=== PATIENT | female | born 1955 | race Caucasian/White ===

== ENCOUNTER 2017-09-11 06:29 | Observation (INO) | payer OTHER ==
[2017-09-11] MEDS ORDERED: PROCHLORPERAZINE INJ 5 MG/ML 2 ML VIAL IV ONE (06:44)
[2017-09-11] MEDS ORDERED: Pantoprazole IV* 40 MG IV ONE (06:49)
--- NOTE | 2017-09-11 06:52 | ED ---
GI/ HPI - HPI Summary HPI Summary: Diabetic, dialysis patient presents with nausea, vomiting, diarrhea since 3 AM this morning. Reports she went to a picnic yesterday and feels she may have food poisoning. Another family member that attended this picnic also has the same symptoms. She denies fever, chills, neck stiffness, chest pain, shortness of breath, félix abdominal pain. She does have a PEDRAZA after these actions. She has not tried anything prior to arrival. She denies nausea at this point in time however reports it's been coming in waves. Has had syncope prior to arrival. She is still urinating however it seems to be less than usual. She is due for dialysis today and her last treatment was Monday. Other medical history of note: Patient is status post splenectomy due to hereditary spherocytosis and she has a cardiac murmur. Follows with Dr. Izaguirre to the dialysis center. She also has a new cough which she's developed since vomiting. Although she drinks ETOH occasionally, she denies drinking yesterday. - History of Current Complaint Chief Complaint: EDSyncope Time Seen by Provider: 09/11/17 06:31 Stated Complaint: SYNCOPE Hx Obtained From: Patient Pain Intensity: 0 - Allergy/Home Medications Allergies/Adverse Reactions: Allergies Allergy/AdvReac Type Severity Reaction Status Date / Time codeine Allergy Constipatio Verified 09/11/17 08:05 n losartan Allergy Coughing Verified 09/11/17 08:05 Home Medications: Home Medications Carvedilol TAB* [Coreg TAB*] 25 mg PO BID WITH MEALS 09/11/17 [History Confirmed 09/11/17] Cinacalcet TAB* [Sensipar TAB*] 30 mg PO DAILY 09/11/17 [History Confirmed 09/11] Gabapentin CAP(*) [Neurontin 100 mg CAP(*)] 200 mg PO BID 09/11/17 [History Confirmed 09/11/17] Gabapentin CAP(*) [Neurontin 100 mg CAP(*)] 300 mg PO QPM 09/11/17 [History Confirmed 09/11/17] Insulin GLARGINE(*) [Lantus(*)] 20 units SUBCUT QPM 09/11/17 [History Confirmed 09/11/17] Inulin/Chromium Picolinate [Fiber Gummies] 2 tab.chew PO DAILY 09/11/17 [ History Confirmed 09/11/17] Lisinopril TAB* [Prinivil TAB*] 20 mg PO DAILY 09/11/17 [History Confirmed 09/11] Sevelamer TAB* [Renvela TAB*] 1,600 mg PO .WITH SNACKS 09/11/17 [History Confirmed 09/11/17] Sodium Bicarbonate (ANTACID)* 1,300 mg PO TID 09/11/17 [History Confirmed ] Vit B Complx C/Folic Acid/Zinc [Dialyvite 800/Zinc] 1 tab PO DAILY 09/11/17 [ History Confirmed 09/11/17] PMH/Surg Hx/FS Hx/Imm Hx Previously Healthy: Yes Endocrine/Hematology History: Reports: Hx Diabetes - type 2 - uses insulin, Other Endocrine/Hematological Disorders - hereditary spherocytosis - s/p splenectomy Denies: Hx Anticoagulant Therapy, Hx Thyroid Disease, Hx Unexplained Bleeding Cardiovascular History: Reports: Hx Hypercholesterolemia, Hx Hypertension, Other Cardiovascular Problems/Disorders - cardiac murmur - takes diuretic Denies: Hx Congestive Heart Failure, Hx Myocardial Infarction, Hx Pacemaker/ ICD Respiratory History: Denies: Hx Asthma, Hx Chronic Obstructive Pulmonary Disease (COPD), Hx Pneumonia GI History: Reports: Hx Gall Bladder Disease - s/p cholycystectomy History: Reports: Hx Chronic Renal Failure - end stage Comment Only: Hx Dialysis - soon fistula placed Musculoskeletal History: Reports: Hx Back Problems Sensory History: Reports: Hx Contacts or Glasses Denies: Hx Hearing Aid Opthamlomology History: Reports: Hx Contacts or Glasses Neurological History: Reports: Hx Nerve Disease - mononeuritis multiplex Psychiatric History: Denies: Hx Panic Disorder - Surgical History Surgery Procedure, Year, and Place: cholEcystectomy, splenectomy - Immunization History Immunizations Up to Date: Yes Infectious Disease History: No Infectious Disease History: Denies: Traveled Outside the [place] in Last 30 Days - Social History Lives: With Family - female partner Alcohol Use: Rare Hx Substance Use: No Substance Use Type: Reports: None Hx Tobacco Use: No Smoking Status (MU): Never Smoked Tobacco Review of Systems Positive: Fatigue. Negative: Fever, Chills Eyes: Negative ENT: Negative Cardiovascular: Negative Respiratory: Negative Positive: Vomiting, Diarrhea, Nausea Genitourinary: Negative - still urinating but less Musculoskeletal: Negative Skin: Negative Positive: Weakness - generalized Psychological: Normal All Other Systems Reviewed And Are Negative: Yes Physical Exam Triage Information Reviewed: Yes Vital Signs On Initial Exam: Initial Vitals Temp Pulse Resp BP Pulse Ox 96.4 F 73 18 179/72 90 09/11/17 06:30 09/11/17 06:30 09/11/17 06:30 09/11/17 06:30 09/11/17 06:30 Vital Signs Reviewed: Yes Appearance: Positive: No Pain Distress, Ill-Appearing, Obese Skin: Positive: Warm, Dry - generalized pallor/mild jaundice Head/Face: Positive: Normal Head/Face Inspection Eyes: Positive: Normal, EOMI, SAUL, Conjunctiva Clear ENT: Positive: Normal ENT inspection, Hearing grossly normal, Pharynx normal - mucosa moist Neck: Positive: Supple Respiratory/Lung Sounds: Positive: Clear to Auscultation, Breath Sounds Present , Other - wet cough at times - she is able to clear w/o difficulty Cardiovascular: Positive: Murmur, Other - Rt arm fistula in place, S1, S2 Abdomen Description: Positive: Soft, Other: - mild TTP over epigastric region and both sides - no lower ab pain - no rebounding Musculoskeletal: Positive: Normal, Strength/ROM Intact Neurological: Positive: Normal, Alert, Oriented to Person Place, Time, CN Intact II-III Psychiatric: Positive: Normal Diagnostics - Vital Signs Vital Signs Temp Pulse Resp BP Pulse Ox 09/11/17 06:35 73 26 93 09/11/17 06:33 72 15 179/72 93 09/11/17 06:30 96.4 F 73 18 179/72 90 - Laboratory Result Diagrams: 09/11/17 06:47 09/11/17 06:47 Lab Statement: Any lab studies that have been ordered have been reviewed, and results considered in the medical decision making process. Re-Evaluation - Re-Evaluation First Eval Change: Improved - nausea improved GIGU Course/Dx - Course Course Of Treatment: Patient presents to the ED with acute onset nausea vomiting diarrhea at 3 AM this morning. She suspects this could be food poisoning as she and her sister hvae similar sx since attending a picnic yesterday. Abnormal labs to include: WBC 23 w/ neut 19.3. K+ 5.1 BUN 97 Creat 8.80 glucose 137 phosphorous 5.6 chloride 92 lipase 579. H&H are stable at 12.5 and 38 respectively. Blood type is A+. Given her abnormal labs, comorbidities and that she require dialysis today, she'll be admitted to the telemetry unit - Dr. Izaguirre aware. Fluids were held as pt's vitals are stable and she has a diuretic listed on her med list. ECG NSR w/o peaked or flat T waves and no ST changes. Patient's chest x-ray is without acute findings and her brain CT although without acute findings does have a new finding of calcification of Rt posterior frontal meningioma. Discussed with Dr. Ang who will share findings with the patient as well as admit. Pt in stable condition at time of admission. - Diagnoses Provider Diagnoses: Vomiting and diarrhea, Syncope, Diabetes, ESRD (end stage renal disease) Discharge - Sign-Out/Discharge Documenting (check all that apply): Discharge/Admit/Transfer - Discharge Plan Condition: Stable Disposition: ADMITTED TO [facility] - Billing Disposition and Condition Condition: STABLE Disposition: Admitted to [facility]
[2017-09-11 06:56] LABS: Hematocrit 38 % (35-47); Hemoglobin 12.5 g/dl (12.0-16.0); Mean Corpuscular HGB Conc 33 g/dl (31-36); Mean Corpuscular Hemoglobin 31 pg (27-31); Mean Corpuscular Volume 95 fL (80-97); Mean Platelet Volume 9.5 um3 (7.4-10.4); Platelet Count 311 10^3/ul (150-450); Red Blood Count 4.01 10^6/ul (4.0-5.4); Red Cell Distribution Width 16 % (10.5-15); White Blood Count 23.6 10^3/ul (3.5-10.8)
[2017-09-11 07:10] LABS: INR 0.91 (0.77-1.02)
[2017-09-11 07:23] LABS: EGFR Non-African American 4.5 (>60)
--- NOTE | 2017-09-11 08:15 | RAD ---
HISTORY: Syncope w/ fall and now PEDRAZA, photophobia, vomiting COMPARISONS: MRI of the brain dated July 06, 2015 TECHNIQUE: Multiple contiguous axial CT scans were obtained of the head without intravenous contrast. FINDINGS: HEMORRHAGE/INFARCT: There is no hemorrhage or acute infarct. MASSES/SHIFT: There is no mass or shift. EXTRA-AXIAL SPACES: There is a small calcific extra-axial lesion along the inner table of the right frontal skull measuring up to 0.3 cm in depth. SULCI AND VENTRICLES: The sulci and ventricles are normal in size and position for the patient's stated age. CEREBRUM: There are no focal parenchymal abnormalities. BRAINSTEM: There are no focal parenchymal abnormalities. CEREBELLUM: There are no focal parenchymal abnormalities. VESSELS: There is calcification of the cavernous segments of the internal carotid arteries bilaterally. PARANASAL SINUSES: The paranasal sinuses are clear. ORBITS: The orbits are unremarkable. BONES AND SOFT TISSUE: No bone or soft tissue abnormalities are noted. OTHER: None IMPRESSION: 1. NO ACUTE INTRACRANIAL PATHOLOGY. 2. INCIDENTAL NOTED IS A SMALL CALCIFIED RIGHT POSTERIOR FRONTAL MENINGIOMA.
--- NOTE | 2017-09-11 08:20 | RAD ---
HISTORY: syncope, cardiac murmur COMPARISONS: February 06, 2015 VIEWS: 3: frontal dual-energy view of the chest FINDINGS: CARDIOMEDIASTINAL SILHOUETTE: The cardiomediastinal silhouette is normal. CHAS: The chas are normal. PLEURA: The costophrenic angles are sharp. No pleural abnormalities are noted. LUNG PARENCHYMA: The lungs are clear. ABDOMEN: The upper abdomen is clear. There is no subphrenic gas. BONES AND SOFT TISSUES: No bone or soft tissue abnormalities are noted. OTHER: None. IMPRESSION: NO ACTIVE CARDIOPULMONARY DISEASE.
[2017-09-11 08:27] LABS: ABS Basophils 0.1 10^3/ul (0-0.2); ABS Eosinophils 0.3 10^3/ul (0-0.6); ABS Lymphocytes 1.4 10^3/ul (1.0-4.8); ABS Monocytes 2.4 10^3/ul (0-0.8); ABS Neutrophils 19.3 10^3/ul (1.5-7.7); ABS Nucleated RBC 0 10^3/ul; Eosinophil % 1.5 % (0-6); Lymphocyte % 6.1 % (25-47); Nucleated Red Blood Cells % 0
[2017-09-11] MEDS ORDERED: Al Hydrox/Mg Hydrox/Simet LIQ* 30 ML UDC PO PRN (08:42)
[2017-09-11] MEDS ORDERED: Sevelamer TAB* 800 MG PO SCH (09:00)
[2017-09-11] MEDS ORDERED: Gabapentin CAP(*) 100 MG PO SCH ×2 (09:00→18:00)
[2017-09-11] MEDS ORDERED: Aspirin EC TAB* 81 MG TAB.EC PO SCH (09:00)
[2017-09-11] MEDS ORDERED: Dextrose 50% Syringe 50 ML* 25 GM/50 ML SYRINGE IV PUSH PRN (09:09)
--- NOTE | 2017-09-11 10:25 | HP ---
HISTORY AND PHYSICAL: DATE OF ADMISSION: 09/11/17 TIME OF ADMISSION: 8:30 a.m. PRIMARY CARE PROVIDER: Dr. Bermudez. NEUROLOGIST: Dr. Izaguirre. CHIEF COMPLAINT: Nausea, vomiting, and syncope. HISTORY OF PRESENT ILLNESS: This is a 62-year-old female with history of diabetes and end-stage renal disease who presents with several hours of nausea, vomiting, and diarrhea; then early this morning her partner Suzanne found her on the floor of the bathroom in a pool of vomit, so she called EMS. Ms. Anderson recalls going to a [facility] yesterday around noon where she ate pulled pork, watermelon, strawberries, cabbage salad, and deviled eggs; and she attributes her symptoms now to food poisoning that she thinks she got at the [facility] yesterday. When she went to bed last evening she felt normal and that she woke around 3 a.m. with an episode of nausea and vomiting and the symptoms progressed this morning. She had one episode of syncope in the living room witnessed by her partner and then another episode in the bathroom as described above. She has also had several episodes of watery diarrhea. She denies abdominal pain or fevers. She also has a friend who is at the [facility] who has diarrhea as well which is why she thinks this was related to the food they ate there. At this time she feels well. She has no complaints. PAST MEDICAL HISTORY: Type 2 diabetes, on insulin, hereditary spherocytosis, status post splenectomy, end-stage renal disease on Monday, Monday, Monday hemodialysis, polyneuropathy, retinopathy, and macular edema. PAST SURGICAL HISTORY: Cholecystectomy, fistula placement. HOME MEDICATIONS: 1. Aspirin 81 mg daily. 2. Atorvastatin 40 mg daily. 3. Coreg 25 mg b.i.d. 4. Cinacalcet 30 mg daily. 5. Gabapentin 200 mg in the morning and 500 mg in the evening. 6. Lantus 20 units q.h.s. 7. Lisinopril 20 mg daily. 8. Sevelamer 1600 mg with snacks and 3200 mg t.i.d. with meals. 9. Sodium bicarb 1300 mg t.i.d. 10. Vitamin B/folic acid/zinc daily and Fiber Gummies. SOCIAL HISTORY: She lives in [place], she does not smoke tobacco, and she drinks alcohol 1 time per month. REVIEW OF SYSTEMS: She denies fevers, chills, chest pain, shortness of breath, palpitations, lightheadedness. She does endorse headache when she got to the ED , but it has now resolved. PHYSICAL EXAMINATION GENERAL: Alert, nontoxic female, in no distress. VITAL SIGNS: Temperature 96.4, heart rate 69, respiratory rate 19, pulse ox 94 % on room air, blood pressure 147/60. HEENT: Pupils are equal, round, and reactive to light. No nystagmus. Oral mucosa is moist. No pharyngeal exudates. NECK: No JVP. No cervical adenopathy. CHEST: Systolic murmur throughout. Lungs clear bilaterally. ABDOMEN: No CVA tenderness. Soft nontender to light and deep palpation. No guarding. No rebound. EXTREMITIES: A fistula on the right upper extremity. No lower extremity edema. No rashes. Normal skin turgor. LABORATORY DATA: White blood cell 23.6, hemoglobin 12.5, platelets 311. Sodium 138, potassium 5.1, chloride 92, bicarb 33, BUN 97, creatinine 8.8, glucose 137, lactic acid 1.1, magnesium 2.7, lipase 579, total bilirubin 0.4, ALT 20, AST 20, CRP 1.0. IMAGING: CT brain showed no acute intracranial pathology and incidentally noted small calcified right posterior frontal meningioma. Chest x-ray no active cardiopulmonary disease. EKG: Normal sinus rhythm, normal axis, normal intervals. No ST or T-wave changes. ASSESSMENT AND PLAN: This is a 62-year-old female with history of diabetes and hereditary spherocytosis status post splenectomy who presents today with nausea , vomiting, diarrhea approximately 15 hours after a [place] picnic. 1. Gastroenteritis. The differential for this is broad given her exposure history. Stool cultures have been sent in the emergency department, I will follow these up. The differential also includes encapsulated organisms given her history of splenectomy; however, I am holding off on starting empiric antibiotics at this point; but should she decompensate, I would have a low threshold to begin antibiotics. Ischemic colitis has been ruled out with a normal lactic acid. Her lipase is elevated; however, she has no epigastric pain and while pancreatitis is on the differential for her symptoms and infectious etiologies are certainly possible with pancreatitis, I think her lipase is elevated due to dehydration. I will recheck it in the morning. A blood culture has also been sent which needs to be followed up on as well as a urinalysis has been ordered; however, she makes little urine. I will treat her symptomatically with antiemetics as needed. 2. Syncope. This seems most likely vasovagal as both times happened in relation to vomiting or diarrhea. Her EKG has no concerning findings; however, she should be monitored on telemetry for the next day to rule out a cardiac etiology for syncope. Her electrolytes are acceptable. I will check orthostatic vitals tomorrow. 3. End-stage renal disease on hemodialysis. She is due for dialysis today. She appears on the dry side. Dr. Izaguirre has been consulted. Continue Cinacalcet and Sevelamer. 4. Diabetic neuropathy. Continue gabapentin. 5. Insulin-dependent diabetes, fingersticks and continue nightly Lantus. This may need to be decreased to night if she does not advance her diet throughout the day. 6. DVT prophylaxis: Heparin subcutaneously. [id number]/[facility] #: [id number] VENANCIO
[2017-09-11] MEDS: Atorvastatin* 40 MG TAB PO SCH (10:42)
[2017-09-11] MEDS: Cinacalcet TAB* 30 MG PO SCH (10:42)
[2017-09-11] MEDS: Lisinopril TAB* 10 MG PO SCH (10:43)
[2017-09-11] MEDS: Sodium Bicarbonate (ANTACID)* 650 MG TAB PO SCH ×3 (10:44→22:20)
[2017-09-11] MEDS ORDERED: Heparin DIALYSIS ONLY(*) 1,000 UNITS/ML VIAL DIALYSIS ONE (12:00)
[2017-09-11] MEDS: Insulin LISPRO* 1 UNITS UNIT SUBCUT SCH ×3 (12:41→22:19)
[2017-09-11] MEDS: Sevelamer TAB* 800 MG PO SCH ×2 (12:42→18:06)
[2017-09-11] MEDS: Heparin VIAL(*) 5000 UNITS/ML VIAL (FIVE THOUSAND) SUBCUT SCH ×2 (12:56→22:20)
[2017-09-11 14:30] LABS: ABS Basophils 0 10^3/ul (0-0.2); ABS Eosinophils 0 10^3/ul (0-0.6); ABS Monocytes 0.8 10^3/ul (0-0.8); ABS Nucleated RBC 0 10^3/ul; Eosinophil % 0.3 % (0-6); Hematocrit 34 % (35-47); Hemoglobin 11.3 g/dl (12.0-16.0); Lymphocyte % 6.1 % (25-47); Mean Corpuscular HGB Conc 33 g/dl (31-36); Mean Corpuscular Hemoglobin 31 pg (27-31); Mean Corpuscular Volume 94 fL (80-97); Mean Platelet Volume 9.8 um3 (7.4-10.4); Nucleated Red Blood Cells % 0; Platelet Count 283 10^3/ul (150-450); Red Blood Count 3.66 10^6/ul (4.00-5.40); Red Cell Distribution Width 16 % (10.5-15)
--- NOTE | 2017-09-11 14:39 | RAD ---
INDICATION: Code swift neurologic changes. COMPARISON: Comparison is made with a prior CT of the brain from approximately 7 hours earlier. TECHNIQUE: Contiguous axial sections of the brain were obtained from the skull base to the vertex without contrast. FINDINGS: The ventricles, cisterns and sulci are enlarged consistent with age-related atrophy. There are small areas of decreased density in the subcortical and periventricular white matter suggestive of mild chronic small vessel ischemic changes. There is a more focal area of decreased attenuation present in the subcortical white matter in the left frontal lobe which may represent chronic small vessel ischemic changes versus a acute to subacute infarct. No significant mass effect is seen. There is no evidence for hemorrhage. No significant focal osseous abnormality is seen. The visualized portion of the paranasal sinuses and mastoid air cells appear clear. The results of this examination were called to the referring clinician 1430 hours. IMPRESSION: 1. SMALL AREA OF DECREASED ATTENUATION IN THE SUBCORTICAL WHITE MATTER IN THE LEFT FRONTAL LOBE CONSISTENT WITH EITHER CHRONIC SMALL VESSEL ISCHEMIC CHANGES OR AN ACUTE TO SUBACUTE INFARCT. THERE IS NO EVIDENCE FOR HEMORRHAGE. CONSIDER MR IMAGING WITHOUT CONTRAST. 2. ATROPHY AND FINDINGS CONSISTENT WITH MILD CHRONIC SMALL VESSEL ISCHEMIC CHANGES.
[2017-09-11 14:50] LABS: EGFR Non-African American 12.7 (>60)
[2017-09-11 14:52] LABS: INR 0.94 (0.77-1.02)
--- NOTE | 2017-09-11 16:04 | PN ---
Hospitalist Progress Note Date of Service: 09/11/17 CAT team called for change in mental status while Ms. Anderson was in HD. HD RN noted that the patient had been hypotensive at the beginning of the session and required a bolus, but had since become normotensive, when she noted drowsiness and when she attempted to wake Ms. Anderson, she was having trouble answering her questions. When I arrived, Ms. Anderson recognized me and was able to tell me who I am, who she is, where we were. BG 109. BP 130/80. On exam, she was able to name objects, follow simple commands, but had left hand weakness and b/l shoulder weakness. Leg strength 5/5. Steven swift was called and Dr. Edwards arrived to complete the NIH stroke scale. A stat CT head was completed. No TPA indicated at this time based on stroke scale. No acute findings noted on CT. Her exam continued to improve and approximately 30 minutes after initial CAT call, she returned to baseline. Transfer to [address] [place] [address], monitor on tele, check MRI. Neuro following. Hold gabapentin.
--- NOTE | 2017-09-11 16:52 | RAD ---
INDICATION: Transient left hemiparesis. COMPARISON: Comparison is made with a prior MRI of the brain from July 06, [address] of the brain from September 11, 2017. TECHNIQUE: Sagittal T1, axial T1, T2, susceptibility, FLAIR and diffusion weighted images were obtained. FINDINGS: The ventricles, cisterns and sulci appear prominent consistent with age-related atrophy. There are small focal areas of increased signal intensity on T2-weighted images present within the subcortical and periventricular white matter most consistent with mild chronic small vessel ischemic changes. No other focal abnormality or mass effect is seen. No areas of restricted diffusion are present. There is no evidence for infarct or hemorrhage. The paranasal sinuses and mastoid air cells appear clear. IMPRESSION: 1. NO EVIDENCE FOR ACUTE INTRACRANIAL ABNORMALITY. 2. MILD ATROPHY AND FINDINGS CONSISTENT WITH MILD CHRONIC SMALL VESSEL ISCHEMIC CHANGES.
[2017-09-11] MEDS ORDERED: Insulin GLARGINE(*) 1 UNITS UNIT SUBCUT SCH (18:00)
--- NOTE | 2017-09-11 18:05 | RAD ---
INDICATION: Transient left hemiparesis. COMPARISON: Comparison is made with a prior study from July 23, 2015. TECHNIQUE: Multiple grayscale, color and Doppler tracings of the common, internal and external carotid and vertebral arteries were obtained. Stenosis estimations reflect velocity criteria that it been correlated to angiographic stenosis calculations based on the distal internal carotid diameter. RIGHT CAROTID: There is mild hyperechoic plaque within the right carotid bulb and proximal internal carotid artery. The peak systolic velocity in the proximal right internal carotid artery is 70 cm/s and the maximum end-diastolic velocity is 16 cm/s. The peak systolic velocity in the distal right common carotid artery is 89 cm/s and the maximum end-diastolic velocity is 14 cm/s. The internal to common carotid artery ratio is 0.8. This would be consistent with a less than 50% stenosis. LEFT CAROTID: There is moderate hyperechoic plaque within the left carotid bulb and proximal internal carotid artery. The peak systolic velocity in the proximal left internal carotid artery is 111 cm/s and the maximum end-diastolic velocity is 22 cm/s. The peak systolic velocity in the distal left common carotid artery is 89 cm/s and the maximum end-diastolic velocity is 9 cm/s. The internal to common carotid artery ratio is 1.3. This would be consistent with a less than 50% stenosis. VERTEBRALS: There is antegrade flow in both vertebral arteries. There is high velocity in the left vertebral artery measuring up to 182 cm/s suggestive of a significant stenosis. While examining the carotid arteries note is made of multiple bilateral large thyroid nodules which measure over 3 cm in size. IMPRESSION: 1. MILD TO MODERATE PLAQUE WITHIN THE CAROTID BULBS AND PROXIMAL INTERNAL CAROTID ARTERIES LEFT GREATER THAN RIGHT WITHOUT EVIDENCE FOR HEMODYNAMICALLY SIGNIFICANT STENOSIS. 2. HIGH VELOCITY IN THE LEFT VERTEBRAL ARTERY SUSPICIOUS FOR A SIGNIFICANT STENOSIS WHICH HAS PROGRESSED FROM THE PRIOR STUDY. 3. LARGE BILATERAL THYROID NODULES. RECOMMEND A THYROID ULTRASOUND FOR FURTHER EVALUATION. CPT II Codes: 3100F
[2017-09-11] MEDS: Carvedilol TAB* 25 MG PO SCH (18:07)
--- NOTE | 2017-09-11 23:02 | CONS ---
NEUROLOGY CONSULTATION REPORT: DATE OF CONSULT: 09/11/17 CONSULTING PROVIDER: Leonora Ang DO REASON FOR CONSULT: Activated code swift due to transient left upper extremity weakness. CHIEF COMPLAINT: Abnormal movements. HISTORY OF PRESENT ILLNESS: Mrs. Leora Anderson is a 62-year-old right-handed female, who has history of diabetes mellitus type 2 and end-stage renal disease , who has hemodialysis on Monday, Monday, Monday, who presented today with a several-hour history of nausea, vomiting, and diarrhea. She was found by her partner on the floor in a pool of vomit, so EMS was contacted. She was at a picnic yesterday and had ate pulled pork and mixture with other foods such as eggs and salad. She was admitted for a possible viral gastroenteritis and/or food poisoning. The patient had 1 episode of syncope witnessed by her partner after she had the vomiting and diarrhea. She has not had any fevers. The patient was having dialysis today. At 1:51 p.m., the patient was noticed to have sudden onset of slurred speech and word-finding difficulty. A quick neuro examination by the dialysis nurse revealed left-sided weakness. The primary provider was contacted and assessed the patient and agreed that there was left-sided weakness and code swift was activated. The patient's last known well time was 1:50 p.m. Symptom onset was around 1:51 p.m. The patient is on aspirin [address] A stat CT head without contrast was obtained and showed no acute intracranial abnormalities. By the time I assessed the patient , left-sided weakness had resolved. Important to note that the patient was hypotensive with systolic blood pressure in the 80s when dialysis was started requiring 2 L of IV fluid. The patient is also taking gabapentin 200 mg in the morning and 300 mg in the evening, for which she received a 200 mg dose. Her blood glucose was 150. She was having abnormal generalized body myoclonus. NIH stroke scale was 0. The patient's main concerns were the abnormal jerky movements. 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 PAST MEDICAL HISTORY: Type 2 diabetes, on insulin; hereditary spherocytosis, status post splenectomy; end-stage renal disease; polyneuropathy; retinopathy; and macular edema. PAST SURGICAL HISTORY: Cholecystectomy and fistula placement in the right upper extremity. HOME MEDICATIONS: 1. Aspirin 81 mg daily. 2. Atorvastatin 40 mg daily. 3. Coreg 25 mg twice daily. 4. Cinacalcet 30 mg daily. 5. Gabapentin 200 mg in the morning and 500 mg in the evening. 6. Lantus 20 units at nighttime. 7. Lisinopril 20 mg daily. 8. Sevelamer 1600 mg with snacks and 3200 mg t.i.d. with meals. 9. Sodium bicarb 1300 mg t.i.d. 10. Vitamins and zinc daily. SOCIAL HISTORY: The patient lives with her partner in [place]. She denied any tobacco use. She drinks rarely. She denied any recreational drug use. REVIEW OF SYSTEMS: A 14-point review of systems was obtained and otherwise negative except for what was mentioned in the HPI. PHYSICAL EXAM: Vital Signs: Temperature 98.8, pulse rate of 72, respiratory rate of 18, oxygen saturation of 96%, blood pressure of 142/72. Important to add that the patient's admission blood pressure was 179/72. The patient had a documented blood pressure of around 80/50-60 during dialysis suggesting that there was a significant drop in her blood pressure. Head: Normocephalic without any obvious abnormality. Neck is supple and symmetrical. No carotid bruit. Lungs are clear to auscultation bilaterally, nonlabored breathing. Cardiovascular: Regular rate and rhythm with normal S1, S2. Extremities: Normal range of motion with no cyanosis. There is profound moderate generalized asterixis involving the upper and lower extremities with posture. Skin: No skin lesion or lacerations. Psych: Affect is broad and normal mood. Easy to establish rapport. Mental Status: Awake and alert, oriented to person , place, time, and general circumstances. She is requesting to go home. Speech and language including expression, naming, repetition, and comprehension were assessed and found to be normal. The patient appears drowsy. Cranial Nerves: Normal to confrontation bilaterally. Pupils are mid range and reactive to light. Normal consensual response. Extraocular muscles are intact. There is no ptosis or nystagmus. Sensation is intact in the forehead, cheeks, and jaw region bilaterally. There is no facial asymmetry, no facial droop. She is able to hear throughout the history process. Symmetric palatal elevation. Normal strength against resistance. Tongue is symmetric and midline with no atrophy or fasciculation. Motor Examination: Again, positive for myoclonus of the upper and lower extremities. No pronator drift. Normal bulk and tone throughout. Strength is 5/5 throughout the upper and lower extremities bilaterally. Reflexes 1+ in the upper extremity and 0 to lower extremities bilaterally. Plantar flexor response bilaterally. Sensation is intact to light touch throughout. There is normal vibration at the heels, but reduced at the toes. Coordination: Normal qdbybf-cf-upra and rapid alternating movement. Gait was not assessed due to severity of myoclonus. LABS/IMAGING AND OTHER DIAGNOSTIC TESTING: CT head was reviewed in the [facility]. Laboratory data: The patient came in with WBC of 23,000 now 17,000. She is anemic at hemoglobin 11.3. Platelet count is 283. Sodium is 135, potassium is 3.9, chloride is 94, creatinine is 3.61, and BUN is 36. Glucose of 102, point of care glucose was 151. Lactic acid of 0.8. LDL of 107. ASSESSMENT: Leora Anderson is a pleasant 62-year-old female with: 1. End-stage renal disease, who developed sudden onset left hemiparesis that resolved during dialysis. She did have an episode of hypotension early on the dialysis. The patient's blood pressure upon admission was significantly elevated in the 179 systolic and it dropped apparently to the 80 systolic during dialysis. I suspect that the transient left hemiparesis is related to a possible transient ischemic attack involving the right internal carotid artery leading to hypoperfusion in the right anterior cerebral circulation. She was not a candidate for mechanical thrombectomy or tPA due to the significant improvement in her neurological deficits and NIHSS was 0. Other differential diagnosis may include seizure with Andre's paralysis that rapidly corrected/ improved. 2. Negative myoclonus (asterixis) - this is not a new presentation or finding for the patient. The patient is on gabapentin. Her BUN is extremely elevated prior to the dialysis. I do suspect this is metabolic versus toxic versus hypotensive induced asterixis. MRI brain will help reveal if there are any areas of infarct in that region. 3. History of hypertension. 4. Dyslipidemia. RECOMMENDATIONS: The patient will be transferred to for close TIA/stroke care. She is already admitted to the hospitalist service. I would recommend close monitoring. Her ABCD2 score is high, hence her risk of stroke is high. Neuro checks every 4 hours for the next 24 hours. I have ordered an MRI of the brain without contrast as well as a carotid sonogram and a 2D transthoracic echo. She should be on telemetry. I have ordered an ammonia level to evaluate for the negative myoclonus, although this can be related to elevated BUN and gabapentin use. I have discontinued gabapentin. We will continue aspirin 81 mg and atorvastatin 40 mg for now, but we may want to increase aspirin to at least 162 mg depending on her progression. Allow permissive blood pressure control between 120 to less than 160 at this point. I have ordered PT/OT/MANAGER MEDICAL evaluation and treatment. She should have a bedside swallow evaluation. Primary stroke preventions were discussed. Do not place a urinary catheter unless there is evidence of urinary retention. DVT prophylaxis with subcutaneous heparin. Leukocytosis will be deferred to the primary team. I will continue to follow. TIME SPENT: I spent a total of 70 minutes and greater than 50% of that was spent directly reviewing the medical chart, obtaining history, examining the patient, education, counseling, and discussing the treatment plan and prognosis. The patient had opportunity to ask questions and I have answered all her questions to her satisfaction. She agreed with the current plan. I also discussed this plan with Dr. Ang. I will continue to follow. [id number]/[facility] #: [id number] VENANCIO
[2017-09-12] MEDS ORDERED: Acetaminophen TAB* 325 MG PO PRN (05:00)
[2017-09-12] MEDS: Heparin VIAL(*) 5000 UNITS/ML VIAL (FIVE THOUSAND) SUBCUT SCH ×2 (05:20→13:30)
[2017-09-12 06:08] LABS: ABS Basophils 0.1 10^3/ul (0-0.2); ABS Eosinophils 0.3 10^3/ul (0-0.6); ABS Monocytes 1.1 10^3/ul (0-0.8); ABS Neutrophils 5.2 10^3/ul (1.5-7.7); ABS Nucleated RBC 0 10^3/ul; Eosinophil % 3.7 % (0-6); Hematocrit 34 % (35-47); Hemoglobin 11.3 g/dl (12.0-16.0); Lymphocyte % 23.6 % (25-47); Mean Corpuscular HGB Conc 34 g/dl (31-36); Mean Corpuscular Hemoglobin 32 pg (27-31); Mean Corpuscular Volume 95 fL (80-97); Mean Platelet Volume 9.6 um3 (7.4-10.4); Nucleated Red Blood Cells % 0.1; Platelet Count 274 10^3/ul (150-450); Red Blood Count 3.58 10^6/ul (4.00-5.40); Red Cell Distribution Width 16 % (10.5-15); White Blood Count 8.7 10^3/ul (3.5-10.8)
[2017-09-12] MEDS ORDERED: Perflutren Lipid Microsphere* 3 ML VIAL ONE (08:00)
[2017-09-12] MEDS: Insulin LISPRO* 1 UNITS UNIT SUBCUT SCH ×2 (08:27→12:25)
[2017-09-12] MEDS: Sevelamer TAB* 800 MG PO SCH ×2 (08:35→12:27)
[2017-09-12] MEDS: Lisinopril TAB* 10 MG PO SCH (08:35)
[2017-09-12] MEDS: Carvedilol TAB* 25 MG PO SCH (08:35)
[2017-09-12] MEDS: Atorvastatin* 40 MG TAB PO SCH (08:35)
[2017-09-12] MEDS: Sodium Bicarbonate (ANTACID)* 650 MG TAB PO SCH ×2 (08:36→13:31)
[2017-09-12] MEDS ORDERED: Aspirin EC TAB* 81 MG TAB.EC PO SCH (09:00)
--- NOTE | 2017-09-12 10:31 | ECHO ---
Patient: BOUCHRA COULTER [facility] Rec#: [id number] : 1955 Date: 09/12/2017 Age: 62y Height: 160.02 cm / 63.0 in Weight: 101.15 kg / 222.9 lbs Sex: F BSA: 2.03 Room#: [facility] Admit Date#: 09/11/2017 Type: Inpatient Referring: Javier Edwards Reading: Roberto Gandhi MD Activities Director Scouting: Tamiko Lopez RDCS CC: Ana Ann NP Transthoracic Echocardiogram Indication: TIA BP: 142/72 HR: 66 Rhythm: NSR with PACs Findings History: ESRD with hemodialysis, HLD, HTN, DM, murmur. Technical Comments: The study is technically limited due to poor apical windows. Completed at 0845. Left Ventricle: The left ventricular chamber size is normal. Moderate concentric left ventricular hypertrophy is observed. Global left ventricular wall motion and contractility are within normal limits. There is normal left ventricular systolic function. The estimated ejection fraction is 55-60%. There is no consistent Doppler evidence of clinically significant diastolic dysfunction. Left Atrium: The left atrium is moderately dilated. Right Ventricle: Moderator Band present. The right ventricle is mild to moderately dilated. The right ventricular global systolic function is low normal. Right Atrium: The right atrium is mild to moderately dilated. Aortic Valve: The aortic valve structure is not well visualized. Mild aortic leaflet calcification is visualized. Systolic excursion of the aortic valve cusps is reduced. There is moderate aortic regurgitation. There is mild to moderate aortic stenosis. The mean gradient of the aortic valve is 31.46 mmHg. The aortic valve area, by peak velocities, is calculated at 1.1 cm2. The highest aortic valve velocity was obtained with the standard probe from the A5C view. Mitral Valve: There is posterior mitral annular calcification. The mitral valve leaflets are mildly thickened. There is mild to moderate mitral regurgitation. There is borderline mitral stenosis. Tricuspid Valve: The tricuspid valve leaflets are normal. There is mild to moderate tricuspid regurgitation. The right ventricular systolic pressure is estimated at 60 mmHg. There is evidence of moderate to severe pulmonary hypertension. There is no tricuspid stenosis. Pulmonic Valve: The pulmonic valve appears normal. There is a trace pulmonic regurgitation. There is no pulmonic stenosis. Pericardium: There is no significant pericardial effusion. A pericardial fat pad is visualized. Aorta: There is no dilatation of the ascending aorta. There is no dilatation of the aortic arch. The aortic root is normal in size. Pulmonary Artery: The main pulmonary artery appears normal. Venous: The inferior vena cava is dilated. There is a greater than 50% respiratory change in the inferior vena cava dimension. Contrast: Definity was used to optimize study. 2 mL of diluted Definity was utilized. Intravenous contrast was used to enhance endocardial border definition. Summary: There was not any prior study for comparison. Conclusions Moderate concentric left ventricular hypertrophy is observed. There is normal left ventricular systolic function. The estimated ejection fraction is 55-60%. Global left ventricular wall motion and contractility are within normal limits. The right ventricular global systolic function is low normal. Systolic excursion of the aortic valve cusps is reduced. There is a trace of aortic regurgitation. There is moderate aortic regurgitation. The mean gradient of the aortic valve is 31.46 mmHg. There is mild to moderate mitral regurgitation. There is mild to moderate tricuspid regurgitation. There is evidence of moderate to severe pulmonary hypertension. There is no significant pericardial effusion. Measurements Name Value Normal Range RVIDd (AP) 2D 3.4 cm (0.9 - 2.6) RVDdMajor (2D) 4.9 cm (2.2 - 4.4) RVAW (2D) 0.8 cm (0.2 - 0.5) RAd ISD 4CH 5.3 cm (3.4 - 4.9) RA (A4C)W 4.9 cm (2.9 - 4.6) IVSd (2D) 1.5 cm (0.6 - 1) LVPWd (2D) 1.5 cm (0.6 - 1) LVIDd (2D) 4.8 cm (3.6 - 5.4) LVIDs (2D) 2.9 cm - LV FS (2D) 40 % (25 - 45) Aortic Annulus 2.4 cm (1.4 - 2.6) Ao root diameter (2D) 3.1 cm (2.1 - 3.5) Ascending Ao 3.3 cm (2.1 - 3.4) Aortic arch 2.2 cm (1.8 - 3.4) LA dimension (AP) 2D 4.5 cm (2.3 - 3.8) LAd ISD 4CH 6.2 cm (2.9 - 5.3) LA ISD 4CH W 4.9 cm (2.5 - 4.5) Name Value Normal Range LA ESV SP 4CH (A/L) 89 ml - LA ESV SP 2CH (A/L) 80 ml - LA ESV BP (A/L) 89 ml - LA ESV BP (A/L) index 44 ml/m2 - LA ESV SP 4CH (MOD) 86 ml - LA ESV SP 2CH (MOD) 80 ml - Name Value Normal Range MV E-wave Vmax 1.5 m/sec - MV deceleration time 238.1 msec - MV A-wave Vmax 1.16 m/sec - MV E:A ratio 1.3 ratio - LV septal e' Vmax 0.06 m/sec - LV lateral e' Vmax 0.09 m/sec - LV E:e' septal ratio 25 ratio - LV E:e' lateral ratio 16.67 ratio - Name Value Normal Range AV Vmax 3.7 m/sec - AV VTI 93.2 cm - AV peak gradient 54.94 mmHg - AV mean gradient 31.46 mmHg - LVOT diameter 2 cm - LVOT Vmax 1.31 m/sec - LVOT VTI 37.7 cm - LVOT peak gradient 6.93 mmHg - LVOT mean gradient 3.84 mmHg - DOI (VTI) 0.4 ratio - OWEN (continuity Vmax) 1.1 cm2 - OWEN (continuity VTI) 1.3 cm2 - CHENCHO Vmax 1.8 m/sec - Name Value Normal Range MV Vmax 1.54 m/sec - MV VTI 43.49 cm - MV peak gradient 9.52 mmHg - MV mean gradient 3.22 mmHg - MV PHT 46.9 msec - MVA (PHT) 4.69 cm2 - MVA (continuity VTI) 2.66 cm2 - Name Value Normal Range TR Vmax 3.6 m/sec - TR peak gradient 52 mmHg - RAP 8 mmHg - RVSP 60 mmHg - IVC diameter 2.3 cm - Name Value Normal Range PV Vmax 0.97 m/sec - PV peak gradient 3.76 mmHg -
[2017-09-12] MEDS: Cinacalcet TAB* 30 MG PO SCH (10:49)
[2017-09-12 11:54] VITALS: BP 128/44
[2017-09-12] MEDS ORDERED: Gabapentin CAP(*) 100 MG PO SCH (14:00)
--- NOTE | 2017-09-13 05:32 | PN ---
NEUROLOGY PROGRESS NOTE: DATE OF SERVICE: 09/12/17 PRIMARY PROVIDER: Dr. Leonora Ang. Neurology is following for the evaluation of transient left arm weakness and abnormal movements. SUBJECTIVE: The patient is back to her normal self. She has no abnormal jerks. She has intermittent left arm numbness, which is chronic. She denied any neck pain. She has no weakness in the left upper extremity. The patient informed me today that she has taken 300 mg of gabapentin 3 times a day. She had a similar reaction to gabapentin 20 years ago where she had significant cognitive slowing and had to slowly wean off the medication. MEDICATIONS: 1. Acetaminophen. 2. Aspirin 162 mg daily. 3. Atorvastatin 40 mg daily. 4. Carvedilol 25 mg twice daily. 5. Sensipar 30 mg daily. 6. Heparin subcutaneous. 7. Insulin. 8. Lisinopril. 9. Renvela. REVIEW OF SYSTEMS: She denied any chest pain, shortness of breath, or palpitations. She denied any focal weakness or paresthesias. She denied any headache, visual disturbances, or impairment in her swallowing function. PHYSICAL EXAM: Vital Signs: Temperature of 98.3, pulse rate of 66, respiratory rate of 16, oxygen saturation of 93% on room air, blood pressure 129 /48. General: Well-nourished, well-developed, obese female in no acute distress. Head is atraumatic, normocephalic. Eyes: Conjunctivae/corneas were clear. Neck: Supple and symmetrical. Extremities: Normal range of motion with no cyanosis. No asterixis were seen on examination. Psych: Affect is broad and normal mood. Neurological examination: Mental status: Awake and alert, oriented to person, place, time, and general circumstances. Speech and language including expression, naming, repetition, and comprehension were assessed and were found to be normal. Cranial Nerves: Pupils equal, round, and reactive to light. Extraocular muscles are intact, normal confrontation testing. Normal facial symmetry. Tongue is midline and symmetrical. Motor Examination: No abnormal movements. No pronator drift. Strength: 5/5 throughout the upper and lower extremities. Reflexes 1+ throughout. Absent at the ankles bilaterally. Sensation is intact to light touch throughout. Coordination: Normal finger-to- nose and [id number] testing bilaterally. Gait is wide based with no ataxia. DIAGNOSTIC STUDIES/LAB DATA: WBC decreased from 17,000 to 8700, platelets are 274. Lipase is 126. Ammonia is 28. Sodium 136, BUN 54, creatinine of 6.05. MRI brain without contrast showed no evidence of acute intracranial abnormality or an acute infarction. She had a transthoracic echo, which showed the ejection fraction is 50% to 60% and the left atrium is moderately dilated. Carotid Doppler study: There is ucoq-[id number]-[id number] plaque within the carotid bulb and proximal internal carotid arteries, left greater than right, without evidence of hemodynamic significant stenosis. There is a large bilateral thyroid nodule. Recommended thyroid ultrasound. ASSESSMENT AND PLAN: 1. Negative myoclonus (asterixis) - I suspect this is related to cerebral hypoperfusion given the drop of her blood pressure as well as metabolic toxic component in the setting of end-stage renal disease as well as gabapentin use. I recommend decreasing gabapentin to 100 mg 3 times daily. New prescription will need to be provided for the patient. She can restart taking the medication today. 2. Transient left arm weakness - I suspect this could be related to a transient ischemic attack in the setting of hypotension. We increased her aspirin to 162 mg and continue her on Lipitor. No need for further testing, and she had a transthoracic echo, which showed the ejection fraction is 50% to 60% and the left atrium is moderately dilated. Carotid Doppler study: There is [id number] plaque within the carotid bulb and proximal internal carotid arteries, left greater than right, without evidence of hemodynamic significant stenosis. There is a large bilateral thyroid nodule. Recommended thyroid ultrasound. 3. Large thyroid nodule - defer to the primary team. She will need thyroid ultrasound. The patient is ready for the discharge from the neurology standpoint. TIME SPENT: I spent a total of 25 minutes and greater than 50% of that was spent directly reviewing the medical chart, examining the patient, and education and counseling. I encouraged the patient to exercise regularly. Primary stroke preventions were discussed, which include adopt a healthy-diet and doing cardiovascular aerobic exercises; at least 20-30 minutes a day for 5 days a week. The patient verbalized understanding. [id number]/[facility] #: [id number] VENANCIO
--- NOTE | 2017-09-13 10:49 | DS ---
CC: Dr. Bermudez * DISCHARGE SUMMARY: DATE OF ADMISSION: 09/11/17. DATE OF DISCHARGE: 09/12/17. PRIMARY CARE PROVIDER: Dr. Bermudez. MY ATTENDING WHILE IN THE HOSPITAL: Dr. Oliva Ling.* (DICTATED BY [facility]) PRIMARY DISCHARGE DIAGNOSES: 1. Gastroenteritis. 2. Transient ischemic attack. 3. Thyroid nodule. SECONDARY DISCHARGE DIAGNOSES: 1. Diabetes mellitus type 2. 2. Hereditary spherocytosis, status post splenectomy. 3. End-stage renal disease, on dialysis. 4. Polyneuropathy. 5. Retinopathy. 6. Macular edema. STUDIES DONE WHILE IN THE HOSPITAL: Brain CT from 09/11/17, read as small area of decreased attenuation of subtotal white matter in the left frontal lobe consistent with either chronic small vessel ischemic changes or an acute or subacute infarct. There is no evidence for hemorrhage. Consider MR imaging without contrast. Atrophy and findings consistent with mild chronic small vessel ischemic changes. Electrocardiogram from 09/11/17, read as normal sinus rhythm, poor R-wave progression across the precordium. No hypertrophy or enlargement. No ST segment abnormalities. Mild TR with a rate of 71, QTC of 469, normal UT interval. No other abnormalities. Repeat brain CT read as no acute intracranial pathology, incidentally noted is a small calcified right posterior frontal meningioma. Brain MRI from 09/11/17, read as no evidence for acute intracranial abnormality and mild atrophy and findings consistent with mild chronic small vessel ischemic changes. Carotid Doppler study from 09/11/17 , read as [id number] plaque within the carotid bulbs with proximal internal carotid arteries, left greater than right without evidence for hemodynamically significant stenosis, high velocity in the left vertebral arteries suspicious for a significant stenosis, which has progressed from the prior study, large bilateral thyroid nodules, recommended a thyroid ultrasound for further evaluation. Transthoracic echocardiogram on 09/11/17, read as mild concentric left ventricular hypertrophy. There is normal left ventricular systolic function, estimated ejection fraction of 55 to 60%, global left ventricular wall motion and contractility within normal limits, right ventricular global systolic function normal, systolic excursion of the aortic valve cusp was reduced. There is moderate aortic regurgitation. Gradient at the aortic valve is 31.46. There is gxee-le-eakbvvgp mitral regurgitation. There is wjvo-by-yaidcooc tricuspid regurgitation. There is evidence of lwowbwku-bv-uvtwzl pulmonary hypertension. There is no significant pericardial effusion. MEDICATIONS AT DISCHARGE: 1. Atorvastatin 40 mg p.o. daily. 2. Sevelamer 3200 mg p.o. t.i.d. with meals. 3. Sodium bicarbonate 1300 mg p.o. t.i.d. 4. Sevelamer 1600 mg p.o. with snacks. 5. Cinacalcet 30 mg p.o. daily. 6. Lisinopril 20 mg p.o. daily. 7. Fiber Gummies two tabs to chew p.o. daily. 8. Insulin glargine 20 units subcutaneous q.p.m. 9. Carvedilol 25 mg p.o. b.i.d. with meals. 10. Vitamin B complex. 11. Multivitamin. 12. Tylenol 650 mg p.o. daily. 13. Aspirin 162 mg p.o. daily. 14. Gabapentin 100 mg p.o. t.i.d. New medications at discharge: 1. Tylenol. 2. Aspirin. 3. Gabapentin. Medications discontinued at discharge: 1. Gabapentin 300 mg p.o. q.p.m. 2. Gabapentin 200 mg p.o. b.i.d. 3. Aspirin 81 mg p.o. daily. HOSPITAL COURSE: This is a brief summary of the patient's presentation. For more details, please see the history and physical from Dr. Leonora Ang, on . In brief, the patient is a 62-year-old female with past medical history significant for the above, who presented after several hours of nausea, vomiting , and diarrhea. After her partner found her in a pool of vomit on the bathroom floor, the patient had previously eaten at a picnic where other members of her family also developed similar symptoms. These symptoms were acute onset around 3 a.m. on the day of admission. The patient had one episode of syncope and another episode in the bathroom. The patient also had several episodes of watery diarrhea. The patient had not increased her fluid intake to compensate for these losses and did not drink very much water, although she is on hemodialysis. The patient was admitted to the hospital for gastroenteritis. The patient was unable to provide a stool sample for culture. The patient had an elevated white blood cell count at 23.6. The patient has sodium 138, potassium 5.1, chloride of 92, carbon dioxide of 33, anion gap of 13, BUN of 97 , creatinine of 8.8, phosphorus 5.6, and lipase of 579. The patient was admitted to the hospital and taken for her normally scheduled hemodialysis. While in hemodialysis, the patient had an episode of diminished responsiveness. According to the dialysis nurse, the patient was oriented, had normal blood pressure despite having hypotension at the beginning of the session, but had left hand weakness and bilateral shoulder weakness. No other focal deficits. The patient has a low NIH stroke scale, not started on tPA. No findings on her CT. MRI was completed and read as above. The patient was seen in consultation by Neurology, who believed this to be a TIA from global hypoperfusion likely due to GI losses, not compensated for before hemodialysis. The patient was transferred to [address] [place] [address] and had a repeat laboratory work, which showed normalization of the patient's potassium, decrease in creatinine, no other significant changes except for a decrease in white blood cell count as well. The patient started on neuro checks, which were found to have returned to the patient's baseline overnight. The patient's carotid Doppler study and transthoracic echocardiogram were performed and read as above. The patient was seen in followup with Dr. Edwards of Neurology on 09/12/17, who cleared her from neurological standpoint after increasing her aspirin. The patient had similar episodes to this previously and being started on gabapentin, so the patient's gabapentin dose was decreased to 100 mg three times daily. The patient felt back to her baseline on 09/12/17. The patient had no episodes of nausea, vomiting or diarrhea while in the hospital. The patient had no growth on her aerobic blood cultures. The patient is unable to produce a urine sample as she makes very low urine due to her end-stage renal disease. The patient had incidentally found thyroid nodules on her imaging and the importance of followup for this were discussed. The patient has not had thyroid function testing while in the hospital. The patient was stable and was able to be discharged on 09/12/17. PHYSICAL EXAMINATION ON THE DAY OF DISCHARGE: General: The patient is a 62- year- old female, who appears her stated age and sitting comfortably in bed, in no acute distress. Vital Signs: At the time of discharge, temperature 98.0, pulse rate 64, respiratory rate 16, oxygen saturation 96% on room air, blood pressure 128/44. HEENT: Head normocephalic, atraumatic. Sclerae anicteric. No conjunctival injection. Nasal mucosa moist. Oral mucosa moist. No oropharyngeal erythema, discharge or exudate. Neck: Supple, nontender, no lymphadenopathy. No carotid bruit auscultated. No JVD. Cardiac: Regular rate and rhythm. No clicks, murmurs, gallops or rubs. Pulses 2+ in the bilateral dorsalis pedis, posterior tibialis, and radial areas. Respiratory: Clear to auscultation bilaterally. No wheezes, rales or rhonchi, good air exchange bilaterally. Abdomen: Soft, nontender, nondistended. Bowel sounds present, normoactive in all 4 quadrants. Normal hepatosplenomegaly. No abdominal bruits auscultated. Genitourinary: No suprapubic or CVA tenderness. Skin: Clean, dry, and intact. No rash. Neuro: Cranial nerves II through XII intact. Slight tingling in the right hand consistent with which is chronic problem for the patient. Cranial nerves II through XII intact. No focal deficits. Normal gait. Psychiatric: Pleasant, cooperative. LABORATORY DATA: On day of discharge, white blood cell count 8.7, hemoglobin 11.3. Sodium 136, potassium 4.4, chloride 93, carbon dioxide 34, BUN 54, creatinine is 6.05, glucose 93, calcium 9.0, bilirubin of 0.5, AST 16, ALT 15, alkaline phosphatase 77, total protein 6.2, albumin 3.5, globulin 2.7. LDL cholesterol 38, HDL cholesterol 41.2. DISCHARGE PLAN: The patient will be discharged to home. The patient seems to have a self-resolving gastroenteritis possibly from a toxin-mediated food poisoning complicating this. The patient had two episodes of syncope, which were likely due to hypotension, due to hypovolemia in combination with vasovagal stimuli from nausea and/or diarrhea. The patient had a TIA while in the hospital likely due to hypoperfusion during dialysis in the setting of pre- existing hypovolemia with no neurological deficits and no abnormalities on MRI. The patient will have her aspirin doubled to 162 mg daily. The patient will not be started on Plavix at this time. There is no MRI evidence of stroke. The patient's symptoms may be related to her gabapentin dosing, which has previously given her similar symptoms. The patient will have her gabapentin dose decreased as above. The patient has been certainly found to have thyroid nodules on exam. That should be followed up with an ultrasound and possible fine-needle aspiration as well as thyroid function tests with her primary care provider. The patient should also have a repeat BMP in one week. The patient will follow up with Dr. Izaguirre as scheduled for her chronic kidney disease and continue dialysis on Monday, Monday, and Monday. The patient should return to the hospital for new weakness, shortness of breath, chest pain or other alarming symptoms. The patient should have a renal diet and engage in activity as tolerated. TIME SPENT: Approximately, 60 minutes was spent on this discharge, 30 of which was spent [id number] with the patient obtaining history and physical and discussing treatment plan. [facility] [id number]/CPS #: [id number]
== END 2017-09-12 14:30 | disposition home or self-care (01) ==
LOC: ED 06:29 → MED 08:42 → INTOOBSV 08:42 → MED 09:58 → UNDOADMIN 09:58 → MEDTELE 15:19 → OBSVTOIN 09-12 13:00 → INTOOBSV 09-12 13:00 → UNDODISOB 09-12 14:30
PROVIDERS: ADMIT Internal Medicine; ATTEND Hospitalist
DX: K52.9 Noninfective gastroenteritis and colitis, unspecified (principal); G45.9 Transient cerebral ischemic attack, unspecified; E04.1 Nontoxic single thyroid nodule; R11.2 Nausea with vomiting, unspecified; E11.319 Type 2 diabetes mellitus with unspecified diabetic retinopathy without macular edema; H35.00 Unspecified background retinopathy; G62.9 Polyneuropathy, unspecified; R55 Syncope and collapse; H35.81 Retinal edema; Z90.81 Acquired absence of spleen; Z79.82 Long term (current) use of aspirin; N18.6 End stage renal disease; Z99.2 Dependence on renal dialysis; Z79.4 Long term (current) use of insulin
CPT/HCPCS: 36415; 70450; 70551; 71045; 80053; 80061; 82140; 83605; 83690; 83735; 84100; 84484; 85025; 85610; 85730; 86140; 86850; 86900; 86901; 87040; 93005; 93306; 93880; 96374; 96375; 99284; A9270-GY; C8929; G0378; G8978-GP-CI; G8979-GP-CI; G8980-GP-CI; J0780; J1644

== ENCOUNTER 2017-11-06 06:52 | Emergency (ER) | payer OTHER ==
[2017-11-06 07:57] LABS: ABS Basophils 0.2 10^3/ul (0-0.2); ABS Eosinophils 0.1 10^3/ul (0-0.6); ABS Lymphocytes 0.9 10^3/ul (1.0-4.8); ABS Monocytes 1.4 10^3/ul (0-0.8); ABS Neutrophils 19.6 10^3/ul (1.5-7.7); ABS Nucleated RBC 0 10^3/ul; Eosinophil % 0.6 % (0-6); Hematocrit 38 % (35-47); Hemoglobin 12.3 g/dl (12.0-16.0); Lymphocyte % 3.9 % (25-47); Mean Corpuscular HGB Conc 33 g/dl (31-36); Mean Corpuscular Hemoglobin 33 pg (27-31); Mean Corpuscular Volume 99 fL (80-97); Mean Platelet Volume 8.3 um3 (7.4-10.4); Nucleated Red Blood Cells % 0.1; Platelet Count 417 10^3/ul (150-450); Red Blood Count 3.78 10^6/ul (4.00-5.40); Red Cell Distribution Width 18 % (10.5-15); White Blood Count 22.2 10^3/ul (3.5-10.8)
[2017-11-06 08:03] LABS: INR 0.94 (0.77-1.02)
[2017-11-06 08:16] LABS: EGFR Non-African American 5.1 (>60)
[2017-11-06] MEDS ORDERED: Dextrose 50% Syringe 50 ML* 25 GM/50 ML SYRINGE IV PUSH ONE ×2 (08:33→08:34)
[2017-11-06] MEDS ORDERED: Insulin REGULAR(*) 1 UNITS UNIT IV PUSH ONE (08:34)
[2017-11-06] MEDS ORDERED: Sodium Polystyrene ORAL.SOL* 15 GM/60 ML BTL PO ONE (08:34)
--- NOTE | 2017-11-06 08:44 | RAD ---
Indication: Loss of consciousness, bladder and stool incontinence. CT of the brain performed without IV contrast. Ventricular structures are midline. No midline shift is noted. The extra-axial spaces are unremarkable. There is no evidence of intracranial mass or hemorrhage. No other high or low density lesions are identified. Mastoid air cells and paranasal sinuses are otherwise unremarkable. IMPRESSION: There is no evidence of intracranial mass or hemorrhage.
--- NOTE | 2017-11-06 08:50 | ED ---
Neurological HPI - HPI Summary HPI Summary: Patient is a 62-year-old female with a history of diabetes, TIA, end-stage renal disease and gets dialysis 3 times weekly presents to the ED with episode of nausea, vomiting, LOC, incontinence which occurred early this morning. She states her partner found her on the bathroom floor. When she awoke, she states she felt okay, but noticed that she had these bouts of incontinence. She endorses a similar episode 5 weeks ago and was diagnosed with gastroenteritis with a vasovagal syncopal episode as well as a possible TIA. She was assessed by Dr. Edwards at the time. brain MRI obtained which shows negative for any findings. During this occurrence, she states she did not feel she ate anything abnormal yesterday. She began with a cough which proceeded immediately to vomiting then with a syncopal episode and about of incontinence. Denies any fevers, sweats, chills. She states she feels otherwise at her baseline. - History of Current Complaint Chief Complaint: EDGeneral Stated Complaint: NEUROLOGICAL DEFICIT Time Seen by Provider: 11/06/17 06:58 Hx Obtained From: Patient Onset/Duration: Sudden Onset Timing: Constant Onset Severity: Moderate Current Severity: None Pain Intensity: 0 Pain Scale Used: 0-10 Numeric Associated Signs and Symptoms: Positive: Incontinent Bladder/Bowel, Nausea/ Vomiting - Additional Pertinent History Primary Care Physician: KAROL - Allergy/Home Medications Allergies/Adverse Reactions: Allergies Allergy/AdvReac Type Severity Reaction Status Date / Time codeine Allergy Constipatio Verified 09/11/17 08:05 n losartan Allergy Coughing Verified 09/11/17 08:05 PMH/Surg Hx/FS Hx/Imm Hx Previously Healthy: No Endocrine/Hematology History: Reports: Hx Diabetes - type 2 - uses insulin, Other Endocrine/Hematological Disorders - hereditary spherocytosis - s/p splenectomy Denies: Hx Anticoagulant Therapy, Hx Thyroid Disease, Hx Unexplained Bleeding Cardiovascular History: Reports: Hx Hypercholesterolemia, Hx Hypertension, Other Cardiovascular Problems/Disorders - cardiac murmur - takes diuretic Denies: Hx Congestive Heart Failure, Hx Myocardial Infarction, Hx Pacemaker/ ICD Respiratory History: Denies: Hx Asthma, Hx Chronic Obstructive Pulmonary Disease (COPD), Hx Pneumonia GI History: Reports: Hx Gall Bladder Disease - s/p cholycystectomy History: Reports: Hx Chronic Renal Failure - end stage Comment Only: Hx Dialysis - soon fistula placed Musculoskeletal History: Reports: Hx Back Problems Sensory History: Denies: Hx Contacts or Glasses, Hx Hearing Aid Opthamlomology History: Denies: Hx Contacts or Glasses Neurological History: Reports: Hx Dementia, Hx Nerve Disease - mononeuritis multiplex Psychiatric History: Denies: Hx Panic Disorder - Surgical History Surgery Procedure, Year, and Place: CHOLECYSECTOMY; SPLENECTOMY - Immunization History Hx Pertussis Vaccination: No Immunizations Up to Date: Unable to Obtain/Confirm Infectious Disease History: No Infectious Disease History: Denies: Traveled Outside the [place] in Last 30 Days - Social History Occupation: Unemployed Lives: With Family Alcohol Use: Rare Hx Substance Use: No Substance Use Type: Reports: None Hx Tobacco Use: No Smoking Status (MU): Never Smoked Tobacco Review of Systems Negative: Fever, Chills, Fatigue, Skin Diaphoresis Negative: Palpitations, Chest Pain Negative: Shortness Of Breath, Cough Positive: Vomiting, Diarrhea, Nausea. Negative: Abdominal Pain Genitourinary: Negative Positive: no symptoms reported, see HPI Musculoskeletal: Negative Skin: Negative Positive: Syncope All Other Systems Reviewed And Are Negative: Yes Physical Exam Triage Information Reviewed: Yes Vital Signs On Initial Exam: Initial Vitals Temp Pulse Resp BP Pulse Ox 96.7 F 73 22 147/55 93 11/06/17 07:03 11/06/17 07:03 11/06/17 07:03 11/06/17 07:03 11/06/17 07:03 Vital Signs Reviewed: Yes Appearance: Positive: Well-Appearing, Well-Nourished Skin: Positive: Warm, Skin Color Reflects Adequate Perfusion Head/Face: Positive: Normal Head/Face Inspection Eyes: Positive: EOMI, SAUL, Conjunctiva Clear Neck: Positive: Supple, No Lymphadenopathy Respiratory/Lung Sounds: Positive: Clear to Auscultation, Breath Sounds Present Cardiovascular: Positive: Normal, RRR, Pulses are Symmetrical in both Upper and Lower Extremities Abdomen Description: Positive: Nontender, Soft Bowel Sounds: Positive: Present Neurological: Positive: Sensory/Motor Intact, Alert, Oriented to Person Place, Time, Normal Gait, Facial Symmetry, Speech Normal Psychiatric: Positive: Normal, Affect/Mood Appropriate AVPU Assessment: Alert Diagnostics - Vital Signs Vital Signs Temp Pulse Resp BP Pulse Ox 11/06/17 08:22 77 14 163/54 97 11/06/17 08:00 73 16 96 11/06/17 07:52 78 11 169/64 99 11/06/17 07:16 74 13 89 11/06/17 07:03 96.7 F 73 22 147/55 93 - Laboratory Lab Results: Lab Results 11/06/17 11/06/17 11/06/17 Range/Units 07:46 07:46 07:46 WBC 22.2 H (3.5-10.8) 10^3/ul RBC 3.78 L (4.00-5.40) 10^6/ul Hgb 12.3 (12.0-16.0) g/dl Hct 38 (35-47) % MCV 99 H (80-97) fL MCH 33 H (27-31) pg MCHC 33 (31-36) g/dl RDW 18 H (10.5-15) % Plt Count 417 (150-450) 10^3/ul MPV 8.3 (7.4-10.4) um3 Neut % (Auto) 88.4 H (38-83) % Lymph % (Auto) 3.9 L (25-47) % [place] % (Auto) 6.2 (0-7) % Eos % (Auto) 0.6 (0-6) % Baso % (Auto) 0.9 (0-2) % Absolute Neuts (auto) 19.6 H (1.5-7.7) 10^3/ul Absolute Lymphs (auto) 0.9 L (1.0-4.8) 10^3/ul Absolute Monos (auto) 1.4 H (0-0.8) 10^3/ul Absolute Eos (auto) 0.1 (0-0.6) 10^3/ul Absolute Basos (auto) 0.2 (0-0.2) 10^3/ul Absolute Nucleated RBC 0 10^3/ul Nucleated RBC % 0.1 INR (Anticoag Therapy) 0.94 (0.77-1.02) Sodium 135 (135-145) mmol/L Potassium 6.3 H* (3.5-5.0) mmol/L Chloride 92 L (101-111) mmol/L Carbon Dioxide 30 (22-32) mmol/L Anion Gap 13 H (2-11) mmol/L BUN 95 H (6-24) mg/dL Creatinine 7.91 H (0.51-0.95) mg/dL Est GFR ( Amer) 6.2 (>60) Est GFR (Non-Af Amer) 5.1 (>60) BUN/Creatinine Ratio 12.0 (8-20) Glucose 163 H (70-100) mg/dL Lactic Acid (0.5-2.0) mmol/L Calcium 10.1 (8.6-10.3) mg/dL Magnesium 2.6 (1.9-2.7) mg/dL Total Bilirubin 0.40 (0.2-1.0) mg/dL AST 15 (13-39) U/L ALT 15 (7-52) U/L Alkaline Phosphatase 67 (34-104) U/L Troponin I 0.02 (<0.04) ng/mL Total Protein 7.5 (6.4-8.9) g/dL Albumin 4.2 (3.2-5.2) g/dL Globulin 3.3 (2-4) g/dL Albumin/Globulin Ratio 1.3 (1-3) TSH 0.85 (0.34-5.60) mcIU/mL 11/06/17 Range/Units 07:46 WBC (3.5-10.8) 10^3/ul RBC (4.00-5.40) 10^6/ul Hgb (12.0-16.0) g/dl Hct (35-47) % MCV (80-97) fL MCH (27-31) pg MCHC (31-36) g/dl RDW (10.5-15) % Plt Count (150-450) 10^3/ul MPV (7.4-10.4) um3 Neut % (Auto) (38-83) % Lymph % (Auto) (25-47) % [place] % (Auto) (0-7) % Eos % (Auto) (0-6) % Baso % (Auto) (0-2) % Absolute Neuts (auto) (1.5-7.7) 10^3/ul Absolute Lymphs (auto) (1.0-4.8) 10^3/ul Absolute Monos (auto) (0-0.8) 10^3/ul Absolute Eos (auto) (0-0.6) 10^3/ul Absolute Basos (auto) (0-0.2) 10^3/ul Absolute Nucleated RBC 10^3/ul Nucleated RBC % INR (Anticoag Therapy) (0.77-1.02) Sodium (135-145) mmol/L Potassium (3.5-5.0) mmol/L Chloride (101-111) mmol/L Carbon Dioxide (22-32) mmol/L Anion Gap (2-11) mmol/L BUN (6-24) mg/dL Creatinine (0.51-0.95) mg/dL Est GFR ( Amer) (>60) Est GFR (Non-Af Amer) (>60) BUN/Creatinine Ratio (8-20) Glucose (70-100) mg/dL Lactic Acid 0.8 (0.5-2.0) mmol/L Calcium (8.6-10.3) mg/dL Magnesium (1.9-2.7) mg/dL Total Bilirubin (0.2-1.0) mg/dL AST (13-39) U/L ALT (7-52) U/L Alkaline Phosphatase (34-104) U/L Troponin I (<0.04) ng/mL Total Protein (6.4-8.9) g/dL Albumin (3.2-5.2) g/dL Globulin (2-4) g/dL Albumin/Globulin Ratio (1-3) TSH (0.34-5.60) mcIU/mL Result Diagrams: 11/06/17 07:46 11/06/17 07:46 Lab Statement: Any lab studies that have been ordered have been reviewed, and results considered in the medical decision making process. - Radiology No standard instances Xray Interpretation: No Acute Changes Radiology Interpretation Completed By: Radiologist - No acute cardiopulmonary changes - EKG No standard instances Cardiac Rate: NL EKG Rhythm: Sinus Rhythm ST Segment: Normal Ectopy: None EKG Comparison: No Significant Change NIH Scale - NIH Scale Level of Consciousness: Alert/Keenly Responsive Ask Patient the Month and His/Her Age: Both Correct Ask Pt to Open/Close Eyes and Professor Of Marketing/Release Non-Paretic Hand: Both Correctly Best Gaze (Only Horizontal Eye Movement): Normal Visual Field Testing: No Visual Loss Facial Paresis-Pt to Smile & Close Eyes or Grimace Symmetry: Normal/Symmetrical Motor Function - Right Arm: No Drift-Holds 10 Seconds Motor Function - Left Arm: No Drift-Holds 10 Seconds Motor Function - Right Leg: No Drift-Holds 10 Seconds Motor Function - Left Leg: No Drift-Holds 10 Seconds Sensory (Use Pinprick to Test Arms/Legs/Trunk/Face): Normal Best Language (Describe Picture, Name Items): No Aphasia Dysarthria (Read Several Words): Normal Extinction and Inattention: No Abnormality Re-Evaluation - Re-Evaluation First Eval Change: Unchanged - Patient is feeling well Course/Dx - Course Course Of Treatment: On arrival, patient appears nontoxic. Vital signs are stable with a slightly elevated BP. She states a similar episode happened her 5 weeks ago and she was hospitalized with a series of tests which were all negative. She states this feels similar, however she denies any neuro deficits. She denies any weakness, headache, visual changes, chest pain, shortness of breath. She states her stomach feels a little bit "gurgly", but denies any nausea at this time. She does not feel that she needs to have a bowel movement and endorses no urinary symptoms. She is due for dialysis in 2 hours. Labs obtained which show an elevated white count of 22 and a potassium elevated at 6.3. Consult with Dr. Izaguirre who suggests dialysis as opposed to medications for hyperkalemia at this time as it will correct during dialysis treatment. I also discussed the case with Dr. Edwards who is familiar with the patient from her previous visit and states there is no further testing at this time and that this is possibly an autonomic dysfunction. I believe her elevated WBC is secondary to her retching vomiting from this morning. Chest x- ray obtained which shows no acute cardiopulmonary findings. This was read by myself, Tova Felix PA-C. EKG obtained which shows normal sinus rhythm. I believe the patient is safe for discharge at this time as symptoms have resolved and her vital signs remained stable. I believe she will improve with dialysis and she is discharged for dialysis at this time. She will follow-up with her PCP regarding these episodes of syncope secondary to retching and diarrhea. NIH stroke scale 0. Again, patient is feeling at her baseline. She will be discharged with close follow-up and she will go directly to dialysis. - Differential Dx Differential Diagnoses Neuro: Positive: Other - TIA, gastroenteritis, vasovagal , syncope, hyperkalemia, metabolic dysfunction - Diagnoses Provider Diagnoses: Hyperkalemia, Vasovagal episode, Incontinence Discharge - Sign-Out/Discharge Documenting (check all that apply): Patient Departure - Discharge Plan Condition: Stable Disposition: HOME Referrals: Wilson Bermudez MD [Primary Care Provider] - Additional Instructions: Go directly to dialysis Please return if you have any worsening or changing symptoms - Billing Disposition and Condition Condition: STABLE Disposition: Home
[2017-11-06] MEDS ORDERED: Benzonatate CAP* 100 MG PO ONE (08:57)
--- NOTE | 2017-11-06 09:15 | RAD ---
Indication: Syncope. Single frontal view of the chest performed at 0900 hours was reviewed. Comparison is made with previous exam dated September 11, 2017. No mediastinal shift is noted. Heart is of normal size and configuration. Lung ibarra appear clear. IMPRESSION: NO ACTIVE CARDIOPULMONARY DISEASE IS NOTED.
[2017-11-06] MEDS ORDERED: Acetaminophen TAB* 325 MG PO ONE (09:18)
[2017-11-06 09:29] VITALS: BP 151/60
== END 2017-11-06 09:28 | disposition home or self-care (01) ==
LOC: ED 06:52
DX: E87.5 Hyperkalemia (principal); R55 Syncope and collapse; R32 Unspecified urinary incontinence; D72.829 Elevated white blood cell count, unspecified; R19.7 Diarrhea, unspecified; R11.2 Nausea with vomiting, unspecified; I12.0 Hypertensive chronic kidney disease with stage 5 chronic kidney disease or end stage renal disease; E11.22 Type 2 diabetes mellitus with diabetic chronic kidney disease; N18.6 End stage renal disease; Z99.2 Dependence on renal dialysis; Z86.73 Personal history of transient ischemic attack (TIA), and cerebral infarction without residual deficits; Z79.4 Long term (current) use of insulin; Z79.899 Other long term (current) drug therapy; Z88.5 Allergy status to narcotic agent; Z88.8 Allergy status to other drugs, medicaments and biological substances
CPT/HCPCS: 36415; 70450; 71045; 80053; 83605; 83735; 84443; 84484; 85025; 85610; 93005; 96374; 99283; A9270-GY

== ENCOUNTER 2018-10-23 12:36 | Emergency (ER) | payer MEDICARE, OTHER ==
[2018-10-23] MEDS ORDERED: Gelfoam 12-7 ADSORBABL SPONGE* 1 EA SPONGE TOPICAL ONE (14:18)
[2018-10-23] MEDS ORDERED: Tranexamic Acid 1,000 MG/10 ML 1,000 MG in NS 0.9% 50 ML* 50 ML TOPICAL ONE (14:18)
--- NOTE | 2018-10-23 14:18 | ED ---
Upper Extremity Pain - HPI Summary HPI Summary: This patient is a 63 year old F presenting to [facility] with a chief complaint of bleeding from a fistula since today morning. Pt came to receive hemodialysis on 10/22/18 (and is scheduled on Mon, Wed, Mon). Pt reports it was difficult to stop bleeding yesterday, and the bleeding restarted today. Pt has previously had a stent placed. - History of Current Complaint Chief Complaint: EDExtremityUpper Stated Complaint: BLEEDING FROM RT ARM PER PT Time Seen by Provider: 10/23/18 14:07 Hx Obtained From: Patient Onset/Duration: Started Hours Ago Timing: Constant Pain Location: Arm Alleviating Factor(s): Nothing Associated Signs & Symptoms: Positive: Redness, Other - bleeding upper arm - Allergies/Home Medications Allergies/Adverse Reactions: Allergies Allergy/AdvReac Type Severity Reaction Status Date / Time codeine Allergy Constipatio Verified 09/11/17 08:05 n losartan Allergy Coughing Verified 09/11/17 08:05 Home Medications: Home Medications Aspirin EC TAB* [Ecotrin EC Low Dose 81 MG*] 81 mg PO DAILY 10/23/18 [History Confirmed 10/23/18] Ticagrelor* [Brilinta*] 90 mg PO BID 10/23/18 [History Confirmed 10/23/18] PMH/Surg Hx/FS Hx/Imm Hx Endocrine/Hematology History: Reports: Hx Diabetes - type 2 - uses insulin, Other Endocrine/Hematological Disorders - hereditary spherocytosis - s/p splenectomy Denies: Hx Anticoagulant Therapy, Hx Thyroid Disease, Hx Unexplained Bleeding Cardiovascular History: Reports: Hx Hypercholesterolemia, Hx Hypertension, Other Cardiovascular Problems/Disorders - cardiac murmur - takes diuretic Denies: Hx Congestive Heart Failure, Hx Myocardial Infarction, Hx Pacemaker/ ICD Respiratory History: Denies: Hx Asthma, Hx Chronic Obstructive Pulmonary Disease (COPD), Hx Pneumonia GI History: Reports: Hx Gall Bladder Disease - s/p cholycystectomy History: Reports: Hx Chronic Renal Failure - end stage Comment Only: Hx Dialysis - soon fistula placed Musculoskeletal History: Reports: Hx Back Problems Sensory History: Denies: Hx Contacts or Glasses, Hx Hearing Aid Opthamlomology History: Denies: Hx Contacts or Glasses Neurological History: Reports: Hx Dementia, Hx Nerve Disease - mononeuritis multiplex Psychiatric History: Denies: Hx Panic Disorder - Surgical History Surgery Procedure, Year, and Place: CHOLECYSECTOMY; SPLENECTOMY Infectious Disease History: No Infectious Disease History: Denies: Traveled Outside the [place] in Last 30 Days - Social History Occupation: Retired Alcohol Use: Rare Hx Substance Use: No Substance Use Type: Reports: None Hx Tobacco Use: No Smoking Status (MU): Never Smoked Tobacco Review of Systems Negative: Fever Positive: Other - fistula in right upper arm. All Other Systems Reviewed And Are Negative: Yes Physical Exam - Summary Physical Exam Summary: GENERAL: Patient is a well-developed and nourished F who is lying comfortable in the stretcher. Patient is not in any acute respiratory distress. HEAD AND FACE: Normocephalic EYES: PERRLA, EOMI x 2. EARS: Hearing grossly intact. MOUTH: Oropharynx within normal limits. NECK: Supple, trachea is midline, no adenopathy, no JVD, no carotid bruit. CHEST: Symmetric, no tenderness at palpation LUNGS: Clear to auscultation bilaterally. No wheezing or crackles. CVS: Regular rate and rhythm, S1 and S2 present, no murmurs or gallops appreciated. ABDOMEN: Soft, non-tender. Bowel sounds are normal. No abnormal abdominal pulsations. EXTREMITIES: Full ROM in all major joints, no edema, no cyanosis or clubbing. Right upper arm fistula NEURO: Alert and oriented x 3. No acute neurological deficits. Speech is normal and follows commands. SKIN: Dry and warm Triage Information Reviewed: Yes Vital Signs On Initial Exam: Initial Vitals Temp Pulse Resp BP Pulse Ox 98.1 F 67 18 147/69 94 10/23/18 12:37 10/23/18 12:37 10/23/18 12:37 10/23/18 12:37 10/23/18 12:37 Vital Signs Reviewed: Yes Diagnostics - Vital Signs Vital Signs Temp Pulse Resp BP Pulse Ox 10/23/18 12:37 98.1 F 67 18 147/69 94 - Laboratory Lab Statement: Any lab studies that have been ordered have been reviewed, and results considered in the medical decision making process. Re-Evaluation - Re-Evaluation First Eval Comment: Stopped bleeding from fistula. Course/Dx - Course Course Of Treatment: This patient is a 63 year old F presenting to [facility] with a chief complaint of bleeding from a fistula since today morning. Physical Exam Findings are nml, except right upper arm fistula. In the ED course the patient was given Gelfoam, and surgicel with achievement of hemostasis. I discussed results with patient, and she reports feeling better. She is hemodynamically stable and safe for discharge. Strict return precautions given and she will otherwise follow up with her PCP. - Diagnoses Provider Diagnoses: Complication of AV dialysis fistula, Bleeding Discharge - Sign-Out/Discharge Documenting (check all that apply): Patient Departure - Discharge Patient Received Moderate/Deep Sedation with Procedure: No - Discharge Plan Condition: Stable Disposition: HOME Patient Education Materials: Arteriovenous Fistula Creation for Hemodialysis ( [place]) Referrals: Wilson Bermudez MD [Primary Care Provider] - 3 Days Additional Instructions: Follow up with your primary care physician in 1-3 days. RETURN TO THE EMERGENCY DEPARTMENT FOR CHANGING OR WORSENING SYMPTOMS. - Billing Disposition and Condition Condition: STABLE Disposition: Home - Attestation Statements Document Initiated by Dianne: Yes Documenting Scribe: Sasha Davis Provider For Whom Dianne is Documenting (Include Credential): Dr. Chin Damico MD Scribe Attestation: Sasha Mcgrath scribed for Dr. Chin Damico MD on 10/24/18 at 0801. Scribe Documentation Reviewed: Yes Provider Attestation: The documentation as recorded by the Sasha miller accurately reflects the service I personally performed and the decisions made by , Dr. Chin Damico MD Status of Scribe Document: Viewed
[2018-10-23] MEDS ORDERED: Tranexamic Acid 1,000 MG/10 ML SDV ONE (14:26)
[2018-10-23 16:21] VITALS: BP 128/87
== END 2018-10-23 16:19 | disposition home or self-care (01) ==
LOC: ED 12:36
DX: T82.838A Hemorrhage due to vascular prosthetic devices, implants and grafts, initial encounter (principal); E11.22 Type 2 diabetes mellitus with diabetic chronic kidney disease; I12.9 Hypertensive chronic kidney disease with stage 1 through stage 4 chronic kidney disease, or unspecified chronic kidney disease; N18.9 Chronic kidney disease, unspecified; Z79.4 Long term (current) use of insulin; R01.1 Cardiac murmur, unspecified; Z79.02 Long term (current) use of antithrombotics/antiplatelets; Z79.82 Long term (current) use of aspirin; F03.90 Unspecified dementia, unspecified severity, without behavioral disturbance, psychotic disturbance, mood disturbance, and anxiety; Z90.49 Acquired absence of other specified parts of digestive tract; Z90.81 Acquired absence of spleen; Z88.5 Allergy status to narcotic agent; Z88.8 Allergy status to other drugs, medicaments and biological substances
CPT/HCPCS: 99282; A9270-GY

== ENCOUNTER 2018-10-24 19:08 | Emergency (ER) | payer MEDICARE ==
--- NOTE | 2018-10-24 19:54 | ED ---
Upper Extremity Pain - HPI Summary HPI Summary: This pt is a 63 y/o F presenting to [facility] accompanied by her partner with a CC of bleeding from her right arm AV fistula since 1500 today and states that there is no pain associated with the bleeding. She stated that she wasnt bleeding after her dialysis finished and was able to go home. She stated that she was bleeding yesterday from the same arm yesterday and was present in the ED during that time. She denies any fevers, diaphoresis, SOB, CP, abdominal pain , N/V/D, and headaches. She stated no aggravating or alleviating factors. She has a PMHx of chronic liver failure. - History of Current Complaint Chief Complaint: EDBleedingDisorder Stated Complaint: ARMS BLEEDING PER PT Time Seen by Provider: 10/24/18 19:39 Hx Obtained From: Patient Mechanism Of Injury: Other - bleeding from right AV fistula after dialysis treatment Onset/Duration: Started Hours Ago - 1500, Still Present Timing: Constant Severity Initially: Mild Severity Currently: Mild Aggravating Factor(s): Nothing Alleviating Factor(s): Nothing Associated Signs & Symptoms: Positive: Negative - diarrhea, hedadaches, pain, Other - POSITIVE: bleeding from her AV fistula on her R arm. Negative: Fever, Chest Pain, SOB, Diaphoresis, Nausea, Vomiting Related History: Similar Episode/Dx As - yesterday, same arm but bleeding from a different spot., Dominant Hand Right - Allergies/Home Medications Allergies/Adverse Reactions: Allergies Allergy/AdvReac Type Severity Reaction Status Date / Time codeine Allergy Constipatio Verified 10/24/18 19:13 n losartan Allergy Coughing Verified 10/24/18 19:13 PMH/Surg Hx/FS Hx/Imm Hx Previously Healthy: No Endocrine/Hematology History: Reports: Hx Diabetes - type 2 - uses insulin, Other Endocrine/Hematological Disorders - hereditary spherocytosis - s/p splenectomy Denies: Hx Anticoagulant Therapy, Hx Thyroid Disease, Hx Unexplained Bleeding Cardiovascular History: Reports: Hx Hypercholesterolemia, Hx Hypertension, Other Cardiovascular Problems/Disorders - cardiac murmur - takes diuretic Denies: Hx Congestive Heart Failure, Hx Myocardial Infarction, Hx Pacemaker/ ICD Respiratory History: Denies: Hx Asthma, Hx Chronic Obstructive Pulmonary Disease (COPD), Hx Pneumonia GI History: Reports: Hx Gall Bladder Disease - s/p cholycystectomy History: Reports: Hx Chronic Renal Failure - end stage Comment Only: Hx Dialysis - soon fistula placed Musculoskeletal History: Reports: Hx Back Problems Sensory History: Denies: Hx Contacts or Glasses, Hx Hearing Aid Opthamlomology History: Denies: Hx Contacts or Glasses Neurological History: Reports: Hx Dementia, Hx Nerve Disease - mononeuritis multiplex Psychiatric History: Denies: Hx Panic Disorder - Surgical History Surgery Procedure, Year, and Place: CHOLECYSECTOMY; SPLENECTOMY Infectious Disease History: No Infectious Disease History: Denies: Traveled Outside the [place] in Last 30 Days - Social History Alcohol Use: Rare Hx Substance Use: No Substance Use Type: Reports: None Hx Tobacco Use: No Smoking Status (MU): Never Smoked Tobacco Review of Systems Positive: Other - NEGATIVE: pain. Negative: Fever, Skin Diaphoresis Negative: Chest Pain Negative: Shortness Of Breath Negative: Abdominal Pain, Vomiting, Diarrhea, Nausea Positive: Other - Bleeding from her AV Fistula on her R arm Negative: Headache All Other Systems Reviewed And Are Negative: Yes Physical Exam - Summary Physical Exam Summary: VITAL SIGNS: Reviewed. GENERAL: Patient is a well-developed and nourished female who is lying comfortable in the stretcher. Patient is not in any acute respiratory distress. post dialysis and had bleeding due to a puncture she received at dialysis. HEAD AND FACE: No signs of trauma. No ecchymosis, hematomas or skull depressions. No sinus tenderness. EYES: PERRLA, EOMI x 2, No injected conjunctiva, no nystagmus. EARS: Hearing grossly intact. Ear canals and tympanic membranes are within normal limits. MOUTH: Oropharynx within normal limits. NECK: Supple, trachea is midline, no adenopathy, no JVD, no carotid bruit, no c- spine tenderness, neck with full ROM CHEST: Symmetric, no tenderness at palpation LUNGS: Clear to auscultation bilaterally. No wheezing or crackles. CVS: Regular rate and rhythm, S1 and S2 present, no murmurs or gallops appreciated. ABDOMEN: Soft, non-tender. No signs of distention. No rebound no guarding, and no masses palpated. Bowel sounds are normal. EXTREMITIES: FROM in all major joints, no edema, no cyanosis or clubbing. NEURO: Alert and oriented x 3. No acute neurological deficits. Speech is normal and follows commands. SKIN: Dry and warm Triage Information Reviewed: Yes Vital Signs On Initial Exam: Initial Vitals Temp Pulse Resp BP Pulse Ox 98.1 F 73 18 162/65 93 10/24/18 19:11 10/24/18 19:11 10/24/18 19:11 10/24/18 19:11 10/24/18 19:11 Vital Signs Reviewed: Yes Procedures - Laceration/Wound Repair 1 Location: upper extremity - R AV fistula Description: Linear Betadine Prep?: Yes Laceration/Wound Explored: clean Closure: Skin Adhesive Debridement: minimal Suture Type: Nylon Number of Sutures: 1 Layer Closure?: Yes Sterile Dressing Applied?: Yes Diagnostics - Vital Signs Vital Signs Temp Pulse Resp BP Pulse Ox 10/24/18 19:11 98.1 F 73 18 162/65 93 - Laboratory Lab Statement: Any lab studies that have been ordered have been reviewed, and results considered in the medical decision making process. Course/Dx - Course Course Of Treatment: This pt is a 63 y/o F presenting to [facility] with a CC of bleeding from her R AV Fistula after her dialysis treatment today. She stated that the bleeding started at 1500 and has been constant. She denies any pain. Her PE found that she was post dialysis and had bleeding due to a puncture she received at dialysis. She received one stitch to close the wound and was instructed to remove the stitch in a week by her PCP. She had a clean dressing applied over the stitch. She was also told about the proper way to apply pressure after dialysis and to return to the ED with any new or worsening symptoms. - Diagnoses Provider Diagnoses: Bleeding Discharge - Sign-Out/Discharge Documenting (check all that apply): Patient Departure - discharge Patient Received Moderate/Deep Sedation with Procedure: No - Discharge Plan Condition: Stable Disposition: HOME Patient Education Materials: Acute Wounds (ED) Referrals: Wilson Bermudez MD [Primary Care Provider] - 1 Week Additional Instructions: Please return to the Emergency room with any new or worsening symptoms. See your Primary care physician in one week to remove the stitch. - Attestation Statements Document Initiated by Scribe: Yes Documenting Scribe: Abhijeet Onofre Provider For Whom Scribe is Documenting (Include Credential): Carina Garcia MD Scribe Attestation: Abhijeet Mcgrath, scribed for Carina Garcia MD on 10/24/18 at 1958. Status of Scribe Document: Ready
[2018-10-24 20:21] VITALS: BP 158/65
== END 2018-10-24 20:20 | disposition home or self-care (01) ==
LOC: ED 19:08
DX: T82.838A Hemorrhage due to vascular prosthetic devices, implants and grafts, initial encounter (principal); E11.22 Type 2 diabetes mellitus with diabetic chronic kidney disease; I12.0 Hypertensive chronic kidney disease with stage 5 chronic kidney disease or end stage renal disease; N18.6 End stage renal disease; Z99.2 Dependence on renal dialysis; Z79.4 Long term (current) use of insulin; R01.1 Cardiac murmur, unspecified; Z79.02 Long term (current) use of antithrombotics/antiplatelets; Z79.82 Long term (current) use of aspirin; F03.90 Unspecified dementia, unspecified severity, without behavioral disturbance, psychotic disturbance, mood disturbance, and anxiety; Z90.49 Acquired absence of other specified parts of digestive tract; Z90.81 Acquired absence of spleen; Z88.5 Allergy status to narcotic agent; Z88.8 Allergy status to other drugs, medicaments and biological substances
CPT/HCPCS: 12001; 99282

== ENCOUNTER 2018-12-05 16:41 | Emergency (ER) | payer MEDICARE ==
--- OUTSIDE RECORDS SUMMARY | 2018-12-05 16:45 | XMS REPORT | Summary of Care ---
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 c/o bleeding following dialysis & needed to go to ER X 2. thrill & bruit noted. Encounter Details Date Type Department Care Team Description 11/13/2018 Office Visit Karen Mo Garcia, ESRD on dialysis ([facility]) Surgery MD Johnathan (Primary Dx) [address] [place] [address] [place] [id number] [phone] Allergies Active Allergy Reactions Severity Noted Date Comments Kd Inhibitors Respiratory Reaction 11/16/2011 Cough Codeine GI Reaction 06/16/2014 nausea documented as of this encounter (statuses as of 11/13/2018) Medications Medication Sig Dispensed Refills Start Date End Date Status aspirin (ECOTRIN) 81 MG Take 81 mg by 0 Active PO TBEC mouth DAILY. acetaminophen (TYLENOL) Take 650 mg by 0 Active 325 MG Oral Tab mouth EVERY FOUR HOURS NEEDED for Pain. B Skadpmb-V-Jcqxb Acid Take by mouth 0 Active (DIALYVITE PO) DAILY. sevelamer carbonate Take 800 mg by 0 Active (RENVELA) 800 MG Oral mouth THREE TIMES TabIndications: 4 tabs DAILY WITH MEALS. with meals 2 tabs with Indications: 4 snacks. tabs with meals 2 tabs with snacks. ONETOUCH DELICA LANCETS 1 Each by In 100 Each 9 09/19/2017 Active 33G Does not apply Vitro route MiscIndications: DAILY. 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 clotrimazole-betamethas APPLY TO AFFECTED 3 Tube 5 06/05/2018 Active one (LOTRISONE) 1-0.05 AREA(S) THINLY % Apply externally TWO TIMES A DAY Cream Cinacalcet HCl Take 1 Tab by 0 Active (SENSIPAR) 30 MG Oral mouth DAILY. Tab carvedilol (COREG) 25 TAKE 1 TABLET 180 Tab 3 06/25/2018 Active MG Oral TabIndications: TWICE DAILY WITH Essential hypertension MEALS atorvastatin (LIPITOR) TAKE 1 TABLET 90 Tab 3 06/25/2018 Active 40 MG Oral DAILY TabIndications: Mixed hyperlipidemia amLodipine (NORVASC) 5 Take 1 Tab by 90 Tab 3 08/29/2018 Active MG Oral TabIndications: mouth DAILY. Essential hypertension Lancets Does not apply by Does not apply 300 Each 5 09/11/2018 Active Misc route THREE TIMES DAILY. Brand:One Touch [employer] Dx:250.02Test Blood Glucose 3 times A DAY Glucose Blood (ONE 1 Strip by In 400 Strip 3 09/11/2018 Active TOUCH ULTRA TEST Vitro route FOUR STRIPS) In Vitro Strip TIMES DAILY. Glucose Blood (BLOOD 1 Each by Does 300 Strip 09/17/2018 Active GLUCOSE TEST STRIPS) In not apply route Vitro Strip THREE TIMES DAILY. Diagnosis: Diabetes Mellitus Brand: ultra one touch E11.9 TID gabapentin (NEURONTIN) Take 1 Cap by 270 Cap 09/20/2018 Active 300 MG Oral mouth THREE TIMES CapIndications: Pain in DAILY. both thighs Insulin Pen Needle (PEN 1 Device by Does 100 Each 09/20/2018 Active NEEDLES) 30G X 8 MM not apply route Does not apply Misc DAILY. Dx: E11.9, Inject daily insulin Calcium Polycarbophil Take by mouth 0 Active (FIBERCON DAILY. PO)Indications: 2 daily Indications: [address] 1 Tab under 25 Tab 1 10/10/2018 Active (NITROSTAT) 0.4 MG tongue EVERY FIVE Sublingual SL Tab MINUTES NEEDED for chest pain. Insulin Glargine 100 Inject 20 Units 15 mL 5 10/16/2018 Active UNIT/ML Subcutaneous beneath the skin Solution EVERY MORNING. 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, with long-term current use of insulin Aortic valve stenosis 01/05/2015 Lymphedema distichiasis syndrome with renal disease and diabetes mellitus Diabetic retinopathy 10/14/2014 CKD (chronic kidney disease) stage V requiring chronic dialysis 06/03/2014 Overview: AV fistula - Placed Dr Ford Hemodialysis three times weekly [facility] Asplenia 12/12/2012 Overview: 11/13 Patient needs pneumovax V23 every five years from time of splenectomy - and one after 65 ( but not closer than 5 years from the last ) ; Needs a one time Pneumovax 13 8 weeks later - PV23 ; Needs 2 menactra intially dose ( 8 weeks apart ) and then refresh q 5 years shinlges ok - despite live attenuated HZV (herpes zoster virus) post herpetic neuralgia 12/10/2012 Overview: ~2004 BMI 40.0-44.9, adult 08/30/2011 Overview: This patient's BMI has been calculated and is above average, and BMI management plan is completed. 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 Overview: 2002 affected leg Sacroiliac inflammation 12/24/2010 Vitamin B 12 deficiency 11/26/2010 Diabetic neuropathy, painful 09/08/2008 Overview: Mononeuritis multiplex - followed by neurology in the past- attributed to diabetes Essential hypertension 04/30/2007 Mixed hyperlipidemia 04/30/2007 Nephrotic syndrome 04/30/2007 Hereditary spherocytosis 04/30/2007 Overview: Splenectomy Dr Lynn [facility] 09/06 documented as of this encounter (statuses as of 11/13/2018) Resolved Problems Problem Noted Date Resolved Date ESRD (end stage renal disease) on dialysis 06/17/2015 10/18/2016 ESRD on dialysis 12/11/2014 10/18/2016 Postop check 06/23/2014 10/18/2016 Heart murmur 06/16/2014 10/18/2016 Overview: Echo - fall 2013 - not significant vavular disease noted Hypoglycemia 06/16/2014 10/18/2016 Hemorrhoids 03/03/2014 10/18/2016 Renal insufficiency 10/30/2013 10/18/2016 Amyotrophy 10/19/2011 10/18/2016 Overview: 08/25/11 fall triggered flare up Diabetes mellitus 04/30/2007 10/18/2016 Pelvic fx NEC-open 04/30/2007 10/18/2016 documented as of this encounter (statuses as of 11/13/2018) Immunizations Name Administration Dates Next Due HIB 03/08/2013 Influenza (IM) Preservative Free 01/01/2017, 01/14/2013, 01/05/2012, 12/24/2010 Influenza (IM) W/Pres 01/27/2014 Influenza Vaccine High Dose 01/01/2018, 12/14/2015 Influenza Vaccine Whole 01/30/2009, 01/17/2008 MENINGOCOCCAL CONJUGATE VACCINE 10/16/2018, 01/14/2013 PNEUMOCOCCAL POLYSACCHARIDE VACCINE 01/14/2013 Pneumococcal Conjugate(13 Valent) 11/30/2017 Procrit (40,000u) 12/04/2013, 11/26/2013, 11/19/2013, 11/12/2013 documented as of this encounter Social History Tobacco Use Types Packs/Day Years Used Date Never Smoker Smokeless Tobacco: Never Used Alcohol Use Drinks/Week oz/Week Comments No 0 Standard drinks or equivalent 0.0 Sex Assigned at Date Recorded Not on file Job Start Date Occupation Industry Not on file Not on file Not on file Travel History Travel Start Travel End No recent travel history available. documented as of this encounter Last Filed Vital Signs Vital Sign Reading Time Taken Comments Blood Pressure 128/80 11/13/2018 9:18 AM EDT Pulse 64 11/13/2018 9:18 AM EDT Temperature - - Respiratory Rate - - Oxygen Saturation - - Inhaled Oxygen Concentration - - Weight 108.9 kg (240 lb) 11/13/2018 9:18 AM EDT Height 157.5 cm (5' 2") 11/13/2018 9:18 AM EDT Body Mass Index 43.9 11/13/2018 9:18 AM EDT documented in this encounter Progress Notes Johnathan Garcia MD - 11/13/2018 9:20 AM EDT PATIENT: Leora Anderson : 1955 DATE OF SERVICE: 11/13/2018 REFERRING PRACTITIONER: Wilson Bermudez PRIMARY CARE PROVIDER: Wilson Bermudez CHIEF COMPLAINT: Chief Complaint Patient presents with Follow Up f/u right arm AVF. c/o bleeding following dialysis & needed to go to ER X 2. thrill &bruit noted. HISTORY OF PRESENT ILLNESS: Leora Anderson is a 63-y.o. female who is seen in follow up of right brachiocephalic AV fistula creation on 06/03/14. She c/o problems with dialysis accessing the venous side of the fistula. Oncethey obtain access she does not have a problem with dialysis. Denies any right hand or right arm pain. Denies any fever or chills. She underwent in September a fistulogram with angioplasty ( unclear if it was the fistula or a central vein) by Dr Toscano interventional radiology at [facility] end of August 2014. Patient comes for a follow up; she had a recent episode of large hematoma in right arm after hemodialysis that required ED visit; patient had a duplex that demonstrated a large right arm hematoma and she was managed conservatively, patient states that she had quite bit of pain and swelling in the right arm. Over period of 1 month; arm swelling and pain has decreased, and she had no further issues during hemodialysis. No prolonged bleeding. She denies right arm or hand pain or swelling. 12/19/2017 Patient getting hemodialysis, no issues, no hand pain or swelling. 06/19/2018: Patient seen today in 6 month follow-up,. Denies any problems with dialysis. No problems accessing, no bleeding during dialysis, and no prolonged bleeding after dialysis. Denies hand pain but reports numbness of bilateral hands. She denies any chest pain or shortness of breath. 07/24/2018: Patient seen today with complaints of prolonged bleeding after dialysis, even into the next day. Denies any other problems during dialysis. Denies any hand pain, reports continued numbness of both hands. She denies any chest pain or recent fever or chills. She does report some exertional shortness of breath. [id number]: Patient returns to clinic status post right arm fistulogram and angioplasty of right subclavian and innominate vein 07/30/2018 for suspected stenosis of right subclavian/innominate vein. Patient states that dialysis is going well and the prolonged bleeding has subsided. No other complaints. [id number]: Patient presents to vascular surgery clinic for a follow-up examination, states that recently she had a cardiac catheterization and had underwent drug-eluting stent placement for severe left anterior descending artery stenosis during evaluation for aortic stenosis. Patient states that she has been having some issues with the bleeding at the conclusion of hemodialysis and she has to hold 15minutes of pressure until bleeding subsides. Patient is currently on dual antiplatelet medications. Patient states as such there was no issues with the hemodialysis itself such as clearance and venous pressures. No other complaints. PREVIOUS DIAGNOSTICS: 06/19/2018 IMPRESSIONS: Hx: Patient with right upper arm brachialcephalic arteriovenous fistula with some swelling since previous exam . Duplex imaging of the right upper arm brachialcephalic arteriovenous fistula shows 2 aneurysms near the anticubital region and proximal fisutla which were not present on previous exam of 12/19/17. There is no evidence for narrowing or stenosis within the right upper arm brachialcephalic arteriovenous fistula. AVF: Prx: 3.1 x 4.3cms* P/Mid: 2.1 x 3.4cns* Mid: 1.2 x 1.4 cms Dst: 1.0 x 1.0cms AVF: Anas: 233/142cms Prx: 109/64cms P/Md: 41/14cms Mid: 91/57cms M/Dst: 84/51cms Dst: 83/42cms Brachial Artery Prx: 202/95cms Mid: 184/107cms Dst: 230/98cms Volume Flow: 2290ml/min Pateint right upper arm brachialcephalic arteriovenous fistula without evidence for narrwowing or stenosis. There is the presence of 2 small aneurysms at the right antecubital and proxmal fistula region, new since previous exam of 12/19/2017. 12/19/2017 IMPRESSIONS: 62 year old female with right upper arm brachialcephalic arteriovenous fistula since 07/2014, states no new problems. Duplex imaging of the right upper arm brachialcephalic arteriovenous fistula shows good patency without evidence for stenosis or narrowing. Anas: 254/131cms up to 534/229cms Fistula Prx: 140/45cms P/Md: 101/62cms Mid: 104/62cms M/Dst: 77/45cms Dst: 71/45cms Volume Flow 4200ml/min Right brachial artery Prx: 229/113cms Mid: 153/73cms Dst: 92/50cms Vein Prx: 1.7 x 2.6cms Mid: .89 x .95cms Dst: .72 x 1.0cms Patent right upper arm brachialcephalic arteriovenous fistula without evidence for stenosis or narrowing. No change from previous exam of 06/13/2017. 06/13/2017: IMPRESSIONS: Follow up right upper extremity brachiocephalic arteriovenous fistula Duplex imaging of the right upper extremity brachiocephalic arteriovenous fistula shows it to be patent throughout with an adequate volume flow of 5354 mL/min obtained at the proximal outflow vein. The proximal fistula does appear to be aneurysmal with a sharp angle vs focal narrowing visualized at the anastomosis/proximal outflow vein. An increased velocity of 563/257 cm/sec was obtained at this level. Inflow Artery: Brachial cm/sec Proximal - 353/177 Mid - 195/76 Distal - 245/139 Anastomosis: 501/304 cm/sec Outflow Vein: Cephalic cm/sec Proximal - 563/257 down to 347/137 down to 47/57 Mid - 85/36 Distal - 80/38 Vein/Fistula measurements: cm Proximal - 3.03 x 3.36 down to 2.61 x 3.59 Mid - 1.33 x 1.49 Distal - 0.98 x 0.95 There appears to be little to no change seen since the previous study completed on 03/14/17. 01/14/15 REFERRING PROVIDER: Liliana Olson EXAMINATION: Arterial - Upper INDICATION: Complication of AVF/Graft -996.73 TECHNOLOGIST: Ashley Dennis IMPRESSIONS: Patient has a history of a right upper extremity brachial cephalic arteriovenous fistula. Duplex imaging of the right upper extremity brachial cephalic arteriovenous fistula shows it to be patent. Increased velocities seen in the anastomosis and proximal outflow vein without significant narrowing or thrombus seen. The high velocities may be secondary to angle of takeoff from anastomosis. Measurements and velocities are as follows: Inflow Artery: cm/s Prox: 353/195 Mid: 366/202 Dist: 333/189 Anast: 588/312 cm/s Outflow Vein: cm/s Prox: 723/437 down to 315/160 Mid: 114/51 Dist: 138/78 Vein Measurements: cms Prox: 0.84 x 1.25 to 1.39 x 2.03 Mid: 1.09 x 1.58 Dist: 0.77 x 0.97 Volume Flow: 1023 ml/min to 2440 ml/min There is little change since the previous exam on 12/11/2014. 12/11/14 REFERRING PROVIDER: Liliana Olson EXAMINATION: Arterial - Upper INDICATION: Complication of AVF/Graft -996.73 TECHNOLOGIST: Peggy Waters IMPRESSIONS: Patient has a history of a right upper extremity brachial cephalic arteriovenous fistula. Duplex imaging of the right upper extremity brachial cephalic arteriovenous fistula shows good patency without evidence for narrowing or increased velocities, measurements and velocities are as follows: Inflow Artery: cm/s Prox: 318/156 Mid: 340/153 Dist: 329/136 Anast: 202/79 cm/s Outflow Vein: cm/s Prox: 375/146 Mid: 202/93 Dist: 135/65 Vein Measurements: cms Prox: .74 x .75 Mid: .75 x .81 ACF: 1.08 x 1.40 Dist: .86 x .91 Volume Flow: 1400 ml/min to 2100 ml/min There is no change since the previous exam on 08/29/2014. Preliminary results given to . Past Medical History: Diagnosis Date Aortic valve stenosis 01/05/2015 Back pain Blood disorder Brachial plexus neuropathy 12/[address] Loyola. CKD stage G4/A3, GFR 15 - 29 and albumin creatinine ratio >300 mg/g Coronary artery disease 10/16/2018 Diabetes mellitus pt has IDDM Endocrine problem High cholesterol History of breast surgery hx therese bx Hypertension Osteoarthritis Pelvis fracture (HCC) 02/2006 Spherocytosis, hereditary (HCC) Past Surgical History: Procedure Laterality Date ANGIOPLASTY STENT CORONARY VIA GROIN N/A 10/09/2018 Procedure: ANGIOPLASTY STENT CORONARY; Surgeon: Samy Lee MD; Location: [facility] CATHETERIZATION HEART LEFT N/A 10/09/2018 Procedure: Catheterization Heart Left; Surgeon: Samy Lee MD; Location: [facility] CHOLECYSTECTOMY 11/2001 COLONOSCOPY N/A 12/27/2016 Procedure: COLONOSCOPY; Surgeon: Yan Godoy Jr., MD; Location: [facility] GI OR ECHO, TRANS ESOPHOGEAL N/A 10/09/2018 Procedure: Echo, Trans Esophogeal; Surgeon: Cody Hammond MD; Location : [facility] [place] INTRO AV SHUNT Right 06/17/2015 Procedure: RIGHT ARM FISTULOGRAM; Surgeon: Whitney Ford MD; Location: [facility] MAIN OR [place] INTRO CATH DIALYSIS CIRCUIT DX ANGRPH FLUOR S&I Right 07/30/2018 Procedure: FISTULOGRAM AV ROOM 14, ANGIOPLASTY, RIGHT ARM; Surgeon: Johnathan Garcia MD; Location: [facility] MAIN OR TOTAL SPLENECTOMY 09/2005 Social History Socioeconomic History Marital status: Single Spouse name: Not on file Number of children: Not on file Years of education: Not on file Highest education level: Not on file Occupational History Not on file Social Needs Financial resource strain: Not on file Food insecurity: Worry: Not on file Inability: Not on file Transportation needs: Medical: Not on file Non-medical: Not on file Tobacco Use Smoking status: Never Smoker Smokeless tobacco: Never Used Substance and Sexual Activity Alcohol use: No Alcohol/week: 0.0 standard drinks Drug use: No Sexual activity: Not on file Lifestyle Physical activity: Days per week: Not on file Minutes per session: Not on file Stress: Not on file Relationships Social connections: Talks on phone: Not on file Gets together: Not on file Attends faith service: Not on file Active member of club or organization: Not on file Attends meetings of clubs or organizations: Not on file Relationship status: Not on file Intimate partner violence: Fear of current or ex partner: Not on file Emotionally abused: Not on file Physically abused: Not on file Forced sexual activity: Not on file Other Topics Concern Back Care Not Asked Bike Helmet Not Asked Blood Transfusions Not Asked Caffeine Concern Not Asked Exercise Not Asked Hobby Hazards Not Asked International Travel Not Asked Service Not Asked Occupational Exposure Not Asked Seat Belt Not Asked Self-Exams Not Asked Sleep Concern Not Asked Special Diet Not Asked Stress Concern Not Asked Weight Concern Not Asked Social History Narrative Not on file Current Outpatient Medications Medication Sig acetaminophen (TYLENOL) 325 MG Oral Tab Take 650 mg by mouth EVERY FOUR HOURS NEEDED for Pain. amLodipine (NORVASC) 5 MG Oral Tab Take 1 Tab by mouth DAILY. aspirin (ECOTRIN) 81 MG PO TBEC Take 81 mg by mouth DAILY. atorvastatin (LIPITOR) 40 MG Oral Tab TAKE 1 TABLET DAILY B Umlvukh-W-Vuuhw Acid (DIALYVITE PO) Take by mouth DAILY. Calcium Polycarbophil (FIBERCON PO) Take by mouth DAILY. Indications: 2 daily carvedilol (COREG) 25 MG Oral Tab TAKE 1 TABLET TWICE DAILY WITH MEALS Cinacalcet HCl (SENSIPAR) 30 MG Oral Tab Take 1 Tab by mouth DAILY. clotrimazole-betamethasone (LOTRISONE) 1-0.05 % Apply externally Cream APPLY TO AFFECTED AREA(S) THINLY TWO TIMES A DAY gabapentin (NEURONTIN) 300 MG Oral Cap Take 1 Cap by mouth THREE TIMES DAILY. Glucose Blood (BLOOD GLUCOSE TEST STRIPS) In Vitro Strip 1 Each by Does not apply route THREETIMES DAILY. Diagnosis: Diabetes Mellitus Brand: ultra one touch E11.9 TID Glucose Blood (ONE TOUCH ULTRA TEST STRIPS) In Vitro Strip 1 Strip by In Vitro route FOUR TIMES DAILY. Insulin Glargine 100 UNIT/ML Subcutaneous Solution Pen-injector Inject 20 Units beneath the skin EVERY MORNING. Insulin Pen Needle (PEN NEEDLES) 30G X 8 MM Does not apply Misc 1 Device by Does not apply route DAILY. Dx: E11.9, Inject daily insulin Lancets Does not apply Misc by Does not apply route THREE TIMES DAILY. Brand:[employer] Dx:250.02Test Blood Glucose 3 times A DAY lisinopril (PRINIVIL, ZESTRIL) 20 MG Oral Tab Take 1 Tab by mouth DAILY. nitroglycerin (NITROSTAT) 0.4 MG Sublingual SL Tab Place 1 Tab under tongue EVERY FIVE MINUTES NEEDED for chest pain. ONETOUCH DELICA LANCETS 33G Does not apply Misc 1 Each by In Vitro route DAILY. sevelamer carbonate (RENVELA) 800 MG Oral Tab Take 800 mg by mouth THREE TIMES DAILY WITH MEALS. Indications: 4 tabs with meals 2 tabs with snacks. ticagrelor (BRILINTA) 90 MG Oral Tab Take 1 Tab by mouth TWICE DAILY. No current facility-administered medications for this visit. Allergies Allergen Reactions Kd Inhibitors Respiratory Reaction Cough Codeine GI Reaction nausea ROS: pertinent findings as in HPI. PHYSICAL EXAMINATION: VITALS: BP 128/80 (BP Location: Left arm, Patient Position: Sitting) | Pulse 64 | Ht 5' 2" (1.575m) | Wt 240 lb (108.9 kg) | BMI 43.90 kg/m GENERAL: awake, alert, oriented, morbidly obese, no distress. LUNGS: clear to auscultation HEART: regular rhythm with no murmur or rubs NEURO: Oriented X 3, no focal deficits noted EXTREMITIES: arteriovenous fistula right arm with good bruit and thrill. Right hand warm and well perfused. PULSES: right radial +2 normal. 11/13/2018: Right arm arteriovenous fistula good thrill and bruit, small and soft hematoma noted within the right arm. 2 aneurysmal areas noted mid and distal end of fistula. Palpable right radial artery 2+. LUNGS: Clear bilaterally to auscultation HEART: Regular rate and rhythm, NEURO: Oriented X 3, no focal deficits noted. DIAGNOSTICS: [id number]; fistula duplex demonstrated that fistula is widely patent without any evidence of narrowing in the examined veins. IMPRESSION AND PLAN: Leora Anderson is a 62-y.o. female with ESRD on HD MWF, who was recently seen for right upper extremity AV fistula site pain and hematoma with otherwise strongly palpable thrill and no problems with recent HD access. Her vascular access history includes creation of a right brachiocephalic AV fistula in 2014 which was evaluated with fistulogram in June 2015 for increased velocities in the proximal AVF related to smaller tortuous configuration in that region and demonstrated no stenosis in the anastomosis, proximal AVF or junction with subclavian vein. [id number]; Patient states she had experienced no issues with the hemodialysis. right arm swelling and pain has improved quite a bit and the hematoma size has resolved. Fistula duplex; fistula is wide open with excellent flow volumes and good size. Follow up in 6 months. All questions and concerns were addressed. 12/19/2017: Patient with right upper arm brachialcephalic AV fistula, today's ultrasound showing no evidence of stenosis or narrowing. Distal fistula with aneurysmal area. Recommend dialysis avoid that area if possible. 07/24/2018: Patient with complaints of prolonged bleeding after dialysis. Recommend fistulagram with possible angioplasty, possible stenting. Procedure, benefits, and risks including but not limited to bleeding, infection, blood clots, need for further intervention, and risks of anesthesia. Patient's questions answered. Right arm precautions band will mailed to patient for Monday. Patient given bottleof Endur Soap. Instructions reviewed with patient. [id number]: Patient comes for follow-up status post 1. Right arm fistulogram, right upper extremity venogram and central venogram. 2. Percutaneous transluminal balloon angioplasty of right subclavian vein to innominate vein junction with 10-mm and 12-mm [place] balloon on 07/30/2018. Patient doing well , states that bleeding following hemodialysis is completely subsided. Fistula duplex demonstrated widely patent right arm AV fistula. Recommend follow-up in 3 months. Recommend follow-up sooner if patient experiences any issues with hemodialysis. All questions and concerns were addressed. [id number]: 63-year-old pleasant patient with end-stage renal disease on hemodialysis via right arm brachiocephalic arteriovenous fistula patient is status post right arm fistulogram, balloon angioplastyof right subclavian vein and innominate vein on 07/30/2018. Patient recently had a drug-eluting coronary stent placed for severe left anterior descending artery stenosis by cardiology. Patient is currently on Plavix and Brilinta and is having some prolonged bleeding issues during hemodialysis however since there was no problem with hemodialysis. Fistula duplex demonstrated that the fistula itself is widely patent. At this point we will continue with observation, if the patient experiences more than usual bleedingtimes and if the bleeding is not easily controlled by pressure, we may consider repeating fistulogram to reassess central veins however given the fact that patient is currently on dual antiplatelet medications which may contribute to prolonged bleeding not certain, benefits of this procedure at this point of time. Follow-up in 6 months or sooner if patient experiences worsening bleeding times or elevated venous pressure at hemodialysis or poor clearance. Patient expressed understanding and wished to follow-up further. All questions and concerns were addressed. Author: Johnathan Garcia MD 11/13/2018 09:58 documented in this encounter Plan of Treatment Date Type Specialty Care Team Description 11/13/2018 Ancillary Procedure Radiology End stage renal disease (HCC) 01/24/2019 Lab Internal Medicine 03/14/2019 Office Visit Cardiology Cody Hammond MD [address] [place] [address] 04/18/2019 Office Visit Internal Medicine Wilson Bermudez MD [address] [place] [address] 05/21/2019 Office Visit Vascular Surgery Johnathan Garcia MD [address] [place] [address] [phone] Health Maintenance Due Date Last Done Comments MEDICARE ANNUAL WELLNESS 1955 VISIT MENINGOCOCCAL VACCINE IMM (1 1955 10/16/2018, 01/14/2013 - Risk 2-dose series) ZOSTER IMMUNIZATION SERIES 2003 (1 of 2) Diabetic Eye Exam 08/08/2018 08/08/2017, 02/16/2017 PNEUMOCOCCAL 65+YRS (2 of 2 11/30/2018 11/30/2017, 01/14/2013 - PPSV23) INFLUENZA VACCINE (#1) 2018 01/01/2018, 01/01/2017, 12/14/2015, Additional history exists DEPRESSION SCREENING 02/27/2019 02/27/2018 FALL RISK ASSESSMENT 02/27/2019 02/27/2018, 02/27/2018 HEMOGLOBIN A1C 04/18/2019 10/16/2018, 07/17/2018, 05/03/2018, Additional history exists FOOT EXAM 06/13/2019 06/12/2018, 06/12/2018, 10/18/2016, Additional history exists LIPID DISORDER SCREENING 06/26/2019 06/25/2018, 06/27/2017, 12/14/2012, Additional history exists COLONOSCOPY SCREENING 12/28/2019 12/27/2016, 12/27/2016, 12/03/2013, Additional history exists OSTEOPOROSIS SCREENING 12/13/2022 12/13/2012 HPV IMMUNIZATION SERIES Aged Out No longer eligible based on patient's age to complete this topic documented as of this encounter Goals Goal Patient Goal Associated Recent Patient-Stated? Author Type Problems Progress Blood Pressure Blood Pressure 128/80 No Chinyere, < 140/90 (11/13/2018 MD Sarah 9:18 AM EDT) Note: This is an individualized treatment (blood pressure) goal for Leora Anderson: Displayed above (on the left) is your goal for blood pressure control. Your most recent blood pressure is also shown above, on the right. You should try to achieve blood pressures that are lower than your goal listed above (on the left). Weight increase vs. 18 mo CHF 20 (11/13/2018 9:18 AM EDT) Wilson Bailey MD min (lbs) < 5 Note: This is an individualized treatment (congestive heart failure, CHF) goal for Leora Anderson: Displayed above (on the right) is how many pounds you are in excess of your lowest weight over the past 18 months. Note that lower numbers are better. Excessive weight gain often indicates fluid reten tion and worsening heart failure. You should contact your doctor immediately if the above number is too high (above your goal, the number on the left). Glycohemoglobin A1c < 7.0 Diabetes 5.6 (06/27/2017 7:21 AM No Sarah Whitlock MD EDT) Note: This is an individualized treatment (diabetes control, HgbA1C) goal for Leora Anderson: Displayed above is your progress towards your HgbA1C goal. Your goal is shown above (on the left); your most recent HgbA1C is shown on the right. Note that lower numbers are better. Weight loss vs. 18 mo Lifestyle 10 (11/13/2018 9:18 AM EDT) Sarah Grant MD max (lbs) >= 10 Note: This is an individualized lifestyle goal for Leora Anderson: Your body mass index (BMI) is more than 30. You should lose weight. A reasonable starting goal is to lose 10 pounds. Displayed above is how many pounds you have lost thus far towards your 10 pound weight loss goal. Keep immunizations current Lifestyle Sarah Grant MD Note: This is an individualized lifestyle goal for Leora Anderson: Please be sure to keep up-to-date on recommended immunizations. For example, this would include a yearly influenza vaccine. Immunization status can be seen by looking at the Health Maintenance sections of your [facility], Plan of Care, and any After Visit Summaries. Consume a ur-hycsi-ppxs diet Lifestyle Wilson Bailey MD Note: This is an individualized lifestyle goal for Leora Anderson: Please do not add additional salt to your food. Additional salt may lead to fluid retention and worsen your congestive heart failure. Take all prescribed medications as directed Self-management Sarah Grant MD Note: This is an individualized self-management goal for Leora Anderson: Please take all prescribed medications as directed. 1. Do not skip doses. If you cannot afford your medications, talk with your doctor. 2. Use a pill reminder system such as a pill box if needed. Your pharmacist can help you with this. 3. Contact your Pharmacy 5 days before your medication runs out. If you cannot take your medications for any reasons, talk with your doctor. 4. Please bring all of your medication bottles and inhalers (or a list of all your medications/inhalers) with you to every visit. Potential barriers to meeting all of your care plan goals will continue to be addressed on an ongoing basis. Check your weight daily Self-management Wilson Bailey MD Note: This is an individualized self-management goal for Leora Anderson: Please check your weight daily. Refer to the accompanying CHF treatment goal and call your doctor immediately for further instructions on how to respond to unexpected weight gain. documented as of this encounter Implants Implanted Type Area Honeycomb Blanket Maker Device Shelf Model / Identifier Expiration Serial / Lot Date Synergy Stent - [id number] N/A: [employer] [id number] / Implanted: Qty: 1 on 10/09/2018 by Samy Lee MD at [facility] / [id number] documented as of this encounter Results Not on filedocumented in this encounter Visit Diagnoses Diagnosis ESRD on dialysis (HCC) - Primary End stage renal disease documented in this encounter Insurance Payer Benefit Plan / Subscriber ID Effective Dates Phone Address Type Group AETNA MEDICARE AETNA MEDICARE xxxxxxxx 2017-Present [employer] ADVANTAGE ADVANTAGE Guarantor Name Account Type Relation to Date of Phone Billing Patient Address Leora Anderson Personal/Family 1955 [address] [phone] [place], [place] ([place]) [id number] documented as of this encounter Advance Directives Code Status Date Activated Date Inactivated Comments Full Code 10/09/2018 9:26 AM Does the patient have decision making capacity? Yes Order was discussed with: Patient I discussed all options and patient/surrogate requested and agreed to: Full Code Full Code 10/09/2018 9:26 AM 10/09/2018 9:26 AM Does the patient have decision making capacity? Yes Order was discussed with: Patient I discussed all options and patient/surrogate requested and agreed to: Full Code
--- OUTSIDE RECORDS SUMMARY | 2018-12-05 16:45 | XMS REPORT | Continuity of Care Document ---
:1955 External Reference #:[id number] Author Name Daniel Sánchez M.D. Address [address] [place] [address] Care Team Providers Name Role Phone Panchito Izagiurre M.D. - Nephrology Care Team Information Finishing Room Operator Wilson Bermudez M.D. - Family Medicine Care Team Information Finishing Room Operator Cody Hammond M.D. - Care Team Information Finishing Room Operator [phone] Cardiovascular Disease Problems Active Problems Provider Date Kidney disease Onset: Note: STAGE 4 Type 2 diabetes mellitus Onset: Note: 1990 Chafing of skin Onset: Fungal infection Onset: Essential hypertension Onset: Osteoporosis Onset: Neuropathy Onset: Note: IN FEET Pure hypercholesterolemia Onset: anemia Onset: Chronic renal failure Onset: Renal dialysis Onset: Disorder of eye with type 2 diabetes Panchito Becker M.D. Onset: 09/29/2014 mellitus Nonproliferative diabetic retinopathy Panchito Becker M.D. Onset: 09/29/2014 Nuclear senile cataract Panchito Becker M.D. Onset: 09/29/2014 Diabetic macular edema Panchito Becker M.D. Onset: 12/19/2014 Conjunctivitis Marisabel Astorga O.D. Onset: 02/13/2015 Chalazion Marisabel Astorga O.D. Onset: 02/16/2015 Combined form of senile cataract Panchito Becker M.D. Onset: 04/27/2015 Vitreous hemorrhage Marisabel Astorga O.D. Onset: 10/26/2015 Moderate nonproliferative diabetic Marisabel Astorga O.D. Onset: 10/26/2015 retinopathy Type 2 diabetes mellitus with Panchito Becker M.D. Onset: 11/09/2015 proliferative diabetic retinopathy with macular edema Type 2 diabetes mellitus with Daniel Sánchez M.D. Onset: 03/24/2016 proliferative diabetic retinopathy with macular edema, right eye Type 2 diabetes mellitus with Daniel Sánchez M.D. Onset: 04/21/2016 proliferative diabetic retinopathy without macular edema, bilateral Type 2 diabetes mellitus with Daniel Sánchez M.D. Onset: 06/21/2016 proliferative diabetic retinopathy without macular edema, right eye Type 2 diabetes mellitus with Daniel Sánchez M.D. Onset: 02/16/2017 proliferative diabetic retinopathy with macular edema, bilateral Myopia Daniel Sánchez M.D. Onset: 02/16/2017 Type 2 diabetes mellitus with severe Daniel Sánchez M.D. Onset: 02/16/2017 nonproliferative diabetic retinopathy with macular edema, left eye Retinal edema Daniel Sánchez M.D. Onset: 01/30/2018 Social History Type Date Description Comments Sex Unknown ETOH Use Denies alcohol use Tobacco Use Start: Unknown Patient has never smoked Recreational Drug Use Denies Drug Use Smoking Status Reviewed: 12/04/18 Patient has never smoked Allergies, Adverse Reactions, Alerts Description No Known Drug Allergies Medications Active Medications SIG Qnty Indications Ordering Provider Date Lisinopril Panchito Izaguirre M.D. 10mg Tablets Atorvastatin Calcium Sarah Whitlock M.D. 40mg Tablets Renvela 4 pills per Panchito Izaguirre M.D. 800mg Tablets meal - 2 pills per snack Onetouch Ultra Blue CreSarah steen M.D. Strips Carvedilol Unknown 25mg Tablets Aspir-81 2 Tabs PO Daily Unknown 81mg Tablets DR Tylenol 8 Hour Unknown 650mg Tablets ER Dialyvite 1 tab po daily Unknown Tablets Lantus Solostar 10 Units daily Unknown 100Unit/ML Solution Pen-Inject Sensipar daily Unknown 30mg Tablets Brilinta Unknown 90mg Tablets Alcidesoro Panchito Izaguirre M.D. 500mg Chewtabs Menactra LaraWilson Injection Erika Nitroglycerin Unknown 0.4mg Tablets Sub Gabapentin Cassy Min 300mg Capsules DIRECTOR OF [employer] Amlodipine Besylate McClintic, 5mg Cody Erika Tablets Medications Administered in Office Medication SIG Qnty Indications Ordering Provider Date Avastin Bevacizumab Daniel Sánchez M.D. 11/06/2018 Injection Avastin Bevacizumab Daniel Sánchez M.D. 10/30/2018 Injection Avastin Bevacizumab Daniel Sánchez M.D. 09/18/2018 Injection Avastin Bevacizumab Daniel Sánchez M.D. 08/21/2018 Injection Avastin Bevacizumab Daniel Sánchez M.D. 08/07/2018 Injection Avastin Samira Sánchez M.D. 05/29/2018 Injection Avastin Bevacizumab Daniel Sánchez M.D. 05/22/2018 Injection Avastin Samira Sánchez M.D. 03/20/2018 Injection Avastin Bevacizumab Daniel Sánchez M.D. 03/13/2018 Injection Avastin Bevacizumab Daniel Sánchez M.D. 01/30/2018 Injection Avastin Bevacizumab Daniel Sánchez M.D. 01/23/2018 Injection Avastin Bevacizumab Daniel Sánchez M.D. 11/28/2017 Injection Avastin Bevacizumab Daniel Sánchez M.D. 10/24/2017 Injection Avastin Bevacizumab Daniel Sánchez M.D. 10/18/2017 Injection Avastin Bevacizumab Daniel Sánchez M.D. 09/19/2017 Injection Avastin Bevacizumab Daniel Sánchez M.D. 08/22/2017 Injection Avastin Bevacizumab Daniel Sánchez M.D. 08/15/2017 Injection Avastin Bevacizumab Daniel Sánchez M.D. 06/27/2017 Injection Avastin Bevacizumab Daniel Sánchez M.D. 05/16/2017 Injection Avastin Bevacizumab Daniel Sánchez M.D. 04/11/2017 Injection Avastin Bevacizumab Daniel Sánchez M.D. 03/08/2017 Injection Avastin Bevacizumab Daniel Sánchez M.D. 04/06/2016 Injection Avastin Bevacizumab Panchito Becker M.D. 12/15/2015 Injection Avastin Bevacizumab Panchito Becker M.D. 11/09/2015 Injection Avastin Bevacizumab Panchito Becker M.D. 03/16/2015 Injection Avastin Bevacizumab Panchito Becker M.D. 02/09/2015 Injection Avastin Bevacizumab Panchito Becker M.D. 12/15/2014 Injection Avastin Bevacizumab Panchito Becker M.D. 11/10/2014 Injection Avastin Bevacizumab Panchito Becker M.D. 10/13/2014 Injection Immunizations Description No Information Available Vital Signs Date Vital Result Comment 11/06/2018 4:07pm BP Systolic 130 mmHg BP Diastolic 78 mmHg Heart Rate 76 /min Respiratory Rate 16 /min 10/30/2018 3:59pm BP Systolic 127 mmHg BP Diastolic 69 mmHg Heart Rate 68 /min Results Description No Information Available Procedures Date Code Description Status 11/06/2018 34363 Injection Intravitreal Of A Pharmacologic Agent Completed 10/30/2018 48545 Injection Intravitreal Of A Pharmacologic Agent Completed 09/18/2018 02988 Injection Intravitreal Of A Pharmacologic Agent Completed 08/21/2018 96892 Injection Intravitreal Of A Pharmacologic Agent Completed 08/07/2018 48431 Injection Intravitreal Of A Pharmacologic Agent Completed 07/24/2018 72020 Scanning Computerized Opthalmic Diagnostic Posterior Seg Completed Retina 07/24/2018 86649 Est Patient Comprehensive Exam Completed Medical Devices Description No Information Available Encounters Description No Information Available Assessments Date Code Description Provider 12/04/2018 E11.3412 Type 2 diabetes mellitus with severe Daniel Sánchez M.D. nonproliferative diabet 12/04/2018 E11.3511 Type 2 diabetes mellitus with Daniel Sánchez M.D. proliferative diabetic retinop 12/04/2018 H25.13 Age-related nuclear cataract, bilateral Daniel Sánchez M.D. 11/06/2018 E11.3511 Type 2 diabetes mellitus with Daniel Sánchez M.D. proliferative diabetic retinop 11/06/2018 H35.81 Retinal edema Daniel Sánchez M.D. 10/30/2018 E11.3412 Type 2 diabetes mellitus with severe Daniel Sánchez M.D. nonproliferative diabet 10/30/2018 H35.81 Retinal edema Daniel Sánchez M.D. 09/18/2018 E11.3412 Type 2 diabetes mellitus with severe Daniel Sánchez M.D. nonproliferative diabet 09/18/2018 H35.81 Retinal edema Daniel Sánchez M.D. 08/21/2018 E11.3511 Type 2 diabetes mellitus with Daniel Sánchez M.D. proliferative diabetic retinop 08/21/2018 H35.81 Retinal edema Daniel Sánchez M.D. 08/21/2018 H10.45 Other chronic allergic conjunctivitis Daniel Sánchez M.D. 08/07/2018 E11.3412 Type 2 diabetes mellitus with severe Daniel Sánchez M.D. nonproliferative diabet 08/07/2018 H35.81 Retinal edema Daniel Sánchez M.D. 07/24/2018 E11.3412 Type 2 diabetes mellitus with severe Daniel Sánchez M.D. nonproliferative diabet 07/24/2018 E11.3511 Type 2 diabetes mellitus with Daniel Sánchez M.D. proliferative diabetic retinop Plan of Treatment Future Appointment(s):02/12/2019 3:45 pm - Daniel Sánchez M.D. at Panchito Becker MD, 12/04/2018 - Daniel Sánchez M.D.E11.3412 Type 2 diabetes mellitus with severe nonproliferative diabetComments:Smoking can increase the risk of developing or worsening any eye related disease, as well as affect your overall health. If you are a smoker, we strongly recommend that you quit.If you are not a smoker, we strongly recommend that you do not start. Dr. Sánchez can detect diabetic changes that requires treatment. It is very important to follow all of Dr. Sánchez's instructions and keep all of yourappointments. Proper control of your diabetes is important for the health of your eyes. If you have any questions, please call our office.Follow up:See Procedure Order Log - AVASTIN OS ONLYE14.0695 Type 2 diabetes mellitus with proliferative diabetic retinopComments:I can detect diabetic changes in your eyes. Proper control of your diabetes is important for the health of your eyes. It is important that you keep all of your follow up appointments.H25.13 Age- related nuclear cataract, bilateralComments:Smoking can increase the risk of developing or worsening any eye related disease, as well as affect your overall health. If you are a smoker, we strongly recommend that you quit.If you are not a smoker, we strongly recommend that you do not start. You have been diagnosed with cataracts. If you are happy with your vision as it is now, then we will see you at your next scheduled appointment. If you feel like your vision is getting worse before your scheduled appointment, please call Fernanda at [phone]. Functional Status Description No Information Available Mental Status Description No Information Available Referrals Description No Information Available
[2018-12-05] MEDS ORDERED: Cephalexin CAP* 250 MG PO ONE (17:33)
--- NOTE | 2018-12-05 17:39 | UC ---
Complaint Female HPI - HPI Summary HPI Summary: 63-year-old woman comes in to clinic with a chief complaint of dysuria and urgency. started several hours ago. Patient is on renal dialysis. This reminds her of urinary tract infection. No fevers no chills feels well otherwise. Denies any abdominal pain or flank pain. - History Of Current Complaint Chief Complaint: UCGU Stated Complaint: URINARY COMPLAINT Time Seen by Provider: 12/05/18 16:51 Pain Intensity: 0 - Allergies/Home Medications Allergies/Adverse Reactions: Allergies Allergy/AdvReac Type Severity Reaction Status Date / Time codeine Allergy Constipatio Verified 12/05/18 17:02 n losartan Allergy Coughing Verified 12/05/18 17:02 PMH/Surg Hx/FS Hx/Imm Hx Previously Healthy: Yes - renal failure on dialysis Endocrine History: Diabetes, Dyslipidemia Cardiovascular History: Hypertension Other History Of: Negative For: Anticoagulant Therapy - Surgical History Surgical History: Yes Surgery Procedure, Year, and Place: CHOLECYSECTOMY; SPLENECTOMY. stent October 2018 - Family History Known Family History: Positive: Non-Contributory - Social History Alcohol Use: Rare Substance Use Type: None Smoking Status (MU): Never Smoked Tobacco - Immunization History Most Recent Influenza Vaccination: fall 2013 Most Recent Tetanus Shot: current Most Recent Pneumonia Vaccination: current Review of Systems All Other Systems Reviewed And Are Negative: Yes Constitutional: Positive: Negative Skin: Positive: Negative Eyes: Positive: Negative ENT: Positive: Negative Respiratory: Positive: Negative Cardiovascular: Positive: Negative Gastrointestinal: Positive: Negative Genitourinary: Positive: Dysuria, Frequency, Urgency Motor: Positive: Negative Neurovascular: Positive: Negative Musculoskeletal: Positive: Negative Neurological: Positive: Negative Psychological: Positive: Negative Is Patient Immunocompromised?: No Physical Exam Triage Information Reviewed: Yes Appearance: Well-Appearing, No Pain Distress, Well-Nourished Vital Signs: Initial Vital Signs Temp 98.2 F 12/05/18 17:16 Pulse 72 12/05/18 17:16 Resp 18 12/05/18 17:16 Pulse Ox 95 12/05/18 17:16 Vital Signs Reviewed: Yes Eye Exam: Normal Eyes: Positive: Conjunctiva Clear Neck: Positive: Supple Respiratory: Positive: No respiratory distress Abdomen Description: Positive: Nontender Musculoskeletal: Positive: Strength Intact, ROM Intact Neurological: Positive: Alert Psychological: Positive: Age Appropriate Behavior Skin Exam: Normal Complaint Female Dx - Course Course Of Treatment: Patient reports being treated with Keflex for UTIs in the past. She is on dialysis her dosing will be Keflex 500 mg by mouth twice a day for 7 days. Follow-up with Dr. Lazaro in nephrology. Reevaluation sooner in the emergency department if worse or any questions or concerns. - Differential Dx/Diagnosis Provider Diagnosis: UTI (urinary tract infection) Discharge ED - Sign-Out/Discharge Documenting (check all that apply): Patient Departure All imaging exams completed and their final reports reviewed: No Studies - Discharge Plan Condition: Stable Disposition: HOME Prescriptions: Cephalexin CAP* [Keflex CAP*] 500 mg PO BID #13 cap Patient Education Materials: Urinary Tract Infection in Women (ED) Referrals: Wilson Bermudez MD [Primary Care Provider] - Panchito Lazaro MD [Medical Doctor] - Additional Instructions: FOLLOW UP WITH DR LAZARO. GO TO THE EMERGENCY DEPARTMENT IF YOUR CONDITION WORSENS; FEVER, YOU FEEL ILL OR ANY QUESTIONS OR CONCERNS. - Billing Disposition and Condition Condition: STABLE Disposition: Home
[2018-12-05] MEDS: Cephalexin CAP* 500 MG PO ONE (17:40)
== END 2018-12-05 17:51 | disposition home or self-care (01) ==
LOC: UCEAST 16:41
DX: N39.0 Urinary tract infection, site not specified (principal); I12.0 Hypertensive chronic kidney disease with stage 5 chronic kidney disease or end stage renal disease; E11.22 Type 2 diabetes mellitus with diabetic chronic kidney disease; N18.6 End stage renal disease; Z99.2 Dependence on renal dialysis; Z88.5 Allergy status to narcotic agent
CPT/HCPCS: 81003; 87077; 87086; 87186; 99212; A9270-GY; G0463

== ENCOUNTER 2019-02-11 20:57 | Emergency (ER) | payer MEDICARE ==
--- OUTSIDE RECORDS SUMMARY | 2019-02-11 21:15 | XMS REPORT | Summary of Care ---
:1955 Author Organization [facility] Address [address] [facility] [place] [address] Care Team Providers Name Role Phone Wilson Bermudez Primary Care Provider Daniel Sánchez MD Primary Fitter Placer/Insecticide Sprayer Reason for Visit Reason Comments Cough non-productive Congestion chest Encounter Details Date Type Department Care Team Description 01/31/2019 Office Visit [place] [facility] Wilson Bermudez, CKD (chronic kidney disease) stage V requiring chronic dialysis ([facility]) (Primary Dx); Medicine Aortic stenosis with bicuspid valve; [address] Essential hypertension; [place] [address] [place] [address] 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 acetaminophen (TYLENOL) Take 650 mg by 0 Active 325 MG Oral Tab mouth EVERY FOUR HOURS NEEDED for Pain. B Drpvdpy-F-Cuyzs Acid Take by mouth 0 Active (DIALYVITE [...] Misc route THREE TIMES DAILY. Brand:One Touch [employer] Dx:250.02Test Blood Glucose 3 times A DAY [...] (NEURONTIN) Take 1 Cap by 270 Cap 3 09/20/2018 Active 300 MG Oral mouth THREE TIMES CapIndications: Pain in DAILY. both thighs Calcium Polycarbophil Take by mouth 0 Active (FIBERCON DAILY. PO)Indications: 2 daily Indications: 2 daily Insulin Glargine 100 Inject 20 Units 15 mL 5 10/16/2018 Active UNIT/ML Subcutaneous beneath the skin Solution EVERY MORNING. 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 Coronary artery disease involving barrow coronary artery of barrow heart without angina pectoris nitroglycerin Place 1 Tab under 25 Tab 5 12/12/2018 Active (NITROSTAT) 0.4 MG tongue EVERY FIVE Sublingual SL Tab MINUTES NEEDED for chest pain. Insulin Pen Needle (PEN 1 Device by Does 100 Each 3 12/17/2018 Active NEEDLES) 30G X 8 MM not apply route Does not apply Misc DAILY. Dx: E11.9, Inject daily insulin ADVOCATE INSULIN PEN 1 Each by Does 100 Each 3 12/21/2018 Active NEEDLES 31G X 8 MM Does not apply route not apply Misc DAILY. levoFLOXacin 250 MG Take 250 mg by 0 Active Oral Tab mouth. Benzonatate 200 MG Oral Take 1 Cap by 21 Cap 0 01/28/2019 Active Cap mouth THREE TIMES DAILY NEEDED (cough). 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, with long-term current use of insulin Aortic stenosis with bicuspid valve 01/05/2015 Overview: Moderate on echocardiogram 2018 Lymphedema distichiasis syndrome with renal disease and diabetes mellitus Diabetic retinopathy 10/14/2014 CKD (chronic kidney disease) stage V requiring chronic dialysis 06/03/2014 Overview: AV fistula - Placed Dr Ford Hemodialysis three times weekly [facility] Asplenia 12/12/2012 Overview: 11/13 Patient needs pneumovax [...] Hereditary spherocytosis 04/30/2007 Overview: Splenectomy Dr Lynn [facility] 09/06 documented as of this encounter (statuses as of 01/31/2019) Resolved Problems Problem Noted Date Resolved Date [...] as of this encounter (statuses as of 01/31/2019) Immunizations Name Administration Dates Next Due HIB 03/08/2013 Influenza (IM) Preservative Free 01/01/2017, 01/14/2013, 01/05/2012, 12/24/2010 Influenza (IM) W/Pres 01/27/2014 Influenza Vaccine High Dose 01/01/2018, 12/14/2015 Influenza Vaccine Whole 01/30/2009, 01/17/2008 MENINGOCOCCAL CONJUGATE VACCINE 10/16/2018, 01/14/2013 PNEUMOCOCCAL POLYSACCHARIDE VACCINE 01/31/2019, 01/14/2013 Pneumococcal Conjugate(13 Valent) 11/30/2017 Procrit (40,000u) [...] Sign Reading Time Taken Comments Blood Pressure 94/50 01/31/2019 2:37 PM EDT Pulse 72 01/31/2019 2:37 PM EDT Temperature 36.9 01/31/2019 2:37 PM EDT C (98.5 F) Respiratory Rate - - Oxygen Saturation 89% 01/31/2019 2:37 PM EDT Inhaled Oxygen Concentration - - Weight 101.2 kg (223 lb) 01/31/2019 2:37 PM EDT Height 157.5 cm (5' 2") 01/31/2019 2:37 PM EDT Body Mass Index 40.79 01/31/2019 2:37 PM EDT documented in this encounter Patient Instructions Patient InstructionsWilson Bermudez MD - 01/31/2019 2:20 PM EDTclaritin d or michael D over the counter for cough and nasal drip Use nasal spray flonase or nasacort documented in this encounter Progress Notes Wilson Bermudez MD - 01/31/2019 2:20 PM EDT PATIENT: Leora Anderson : 1955 DATE OF SERVICE: 01/31/2019 CHIEF COMPLAINT: Chief Complaint Patient presents with Cough non-productive Congestion chest Subjective HISTORY OF PRESENT ILLNESS: Leora Anderson is a 64-y.o. female. HPI Follow up to pneumonia and congestive heart failure her weight is stable and she saw cardiology recently her weight is dowin and stable over last few weeks Follow up chest x-ray for pneumonia is clear she has persistent dry cough no sputum no fevers no shortness of breath or wheeze no chest pain She has post nasal drip and nasal congestion for years no colored drainage using no over the countermedications for this denies history tobacco use or asthma Past Medical History: Diagnosis Date Aortic valve [...] Pelvis fracture (HCC) 02/2006 Spherocytosis, hereditary (HCC) Family History Problem Relation Age of Onset Diabetes Mother Thyroid Mother Arthritis Mother Heart Disease Paternal Grandfather Current Outpatient Medications Medication Sig acetaminophen (TYLENOL) 325 MG Oral Tab Take 650 mg by mouth EVERY FOUR HOURS NEEDED for Pain. ADVOCATE INSULIN PEN NEEDLES 31G X 8 MM Does not apply Misc 1 Each by Does not apply route DAILY. amLodipine (NORVASC) 5 MG Oral Tab Take 1 Tab by mouth DAILY. aspirin (ECOTRIN) 81 MG PO TBEC Take 81 mg by mouth DAILY. atorvastatin (LIPITOR) 40 MG Oral Tab TAKE 1 TABLET DAILY B Amiwdud-T-Uhxzf Acid (DIALYVITE PO) Take by mouth DAILY. Benzonatate 200 MG Oral Cap Take 1 Cap by mouth THREE TIMES DAILY NEEDED (cough). Calcium Polycarbophil (FIBERCON PO) Take by mouth [...] Does not apply route THREE TIMES DAILY. Brand:One Touch [employer] Dx:250.02Test Blood Glucose 3 times A DAY levoFLOXacin 250 MG Oral Tab Take 250 mg by mouth. lisinopril (PRINIVIL, ZESTRIL) 20 MG Oral Tab Take 1 Tab by mouth DAILY. nitroglycerin (NITROSTAT) 0.4 MG Sublingual SL Tab Place 1 Tab under tongue EVERY FIVE MINUTES NEEDED for chest pain. ONETOUCH DUARTE LANCETS 33G Does not apply Misc 1 [...] Respiratory Reaction Cough Codeine GI Reaction nausea Social History Socioeconomic History Marital status: Single [...] file Gets together: Not on file Attends sikh service: Not on file Active member of [...] Asked Social History Narrative Not on file ROS no ear symptoms No sore throat No rash Lab Results Component Value Date GLYCO 5.5 01/24/2019 Objective PHYSICAL EXAM: VITALS: BP 94/50 | Pulse 72 | Temp 98.5 F (36.9 C) (Tympanic) | Ht 5 ' 2" (1.575 m) | Wt223 lb (101.2 kg) | SpO2 (!) 89% | BMI 40.79 kg/m Body mass index is 40.79 kg/m. Physical Exam Chest is clear, no wheezing or rales. Normal symmetric air entry throughout both lung ibarra. No chest wall deformities or tenderness. Nasal exam - mucosal congestion, mucosal erythema and clear rhinorrhea. There is trace bilateral ankle edema with no tenderness to palpation, erythema, or heat to the touch. ASSESSMENT / IMPRESSION: ICD-9-CM ICD-10-CM 1. CKD (chronic kidney disease) stage V requiring chronic dialysis (HCC) 585.6 N18.6 V45.11 Z99.2 2. Aortic stenosis with bicuspid valve follow up cardiology 746.3 Q23.0 746.4 Q23.1 3. Essential hypertension at goal 401.9 I10 4. 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 Chronic rhinitis see below 472.0 J31.0 6. History of persistent cough due to #5 V12.69 Z87.09 Patient Instructions claritin d or michael D over the counter for cough and nasal drip Use nasal spray flonase or nasacort Wilson Bermudez MD 01/31/2019 15:25 documented in this encounter Plan of Treatment Date Type Specialty Care Team Description 03/14/2019 Office Visit Cardiology Cody Hammond MD [address] [place] [address] [phone] 04/18/2019 Office Visit Internal Medicine Wilson Bermudez MD [address] [place] [address] 05/21/2019 Office Visit Vascular Surgery Johnathan Garcia MD [address] [place] [address] Health Maintenance Due Date Last Done Comments [...] 02/27/2018 FALL RISK ASSESSMENT 02/27/2019 02/27/2018, 02/27/2018 FOOT EXAM 06/13/2019 06/12/2018, 06/12/2018, 10/18/2016, Additional history exists HEMOGLOBIN A1C 07/26/2019 01/24/2019, 10/16/2018, 07/17/2018, Additional history exists COLONOSCOPY SCREENING 12/28/2019 12/27/2016, 12/27/2016, 12/03/2013, Additional history exists LIPID DISORDER SCREENING 01/25/2020 01/24/2019, 12/12/2018, 06/25/2018, Additional history exists OSTEOPOROSIS SCREENING 12/13/2022 12/13/2012 HPV IMMUNIZATION SERIES Aged Out No longer eligible based on patient's age to complete this topic documented as of this encounter Goals Goal Patient Goal Associated Recent Patient-Stated? Author Type Problems Progress Blood Pressure Blood Pressure 94/50 No Crepet, < 140/90 (01/31/2019 MD Sarah 2:37 PM EDT) Note: This is an individualized treatment (blood pressure) goal for Leora Anderson: Displayed above (on the left) is your goal for blood pressure control. Your most recent blood pressure is also shown above, on the right. You should try to achieve blood pressures that are lower than your goal listed above (on the left). Weight increase vs. 18 mo CHF 3 (01/31/2019 2:37 PM EDT) Wilson Bailey MD min (lbs) < [...] the left). Glycohemoglobin A1c < 7.0 Diabetes 5.5 (01/24/2019 8:08 AM No Sarah Whitlock MD EDT) Note: This is an individualized treatment (diabetes control, HgbA1C) goal for Leora Anderson: Displayed above is your progress towards your HgbA1C goal. Your goal is shown above (on the left); your most recent HgbA1C is shown on the right. Note that lower numbers are better. Weight loss vs. 18 mo Lifestyle 27 (01/31/2019 2:37 PM EDT) Sarah Grant MD max (lbs) >= [...] and any After Visit Summaries. Consume a hf-tknee-tupz diet Lifestyle No Sue Bermudezew R, MD Note: This is an individualized lifestyle [...] of this encounter Implants Implanted Type Area Facility Practice Specialist Device Shelf Model / Identifier Expiration Serial / Lot Date Synergy Stent - [id number] N/A: LAD [employer] [id number] / Implanted: Qty: 1 on 10/09/2018 by Samy Lee MD at [facility] / [id number] documented as of this encounter Results Not on filedocumented in this encounter Visit Diagnoses Diagnosis CKD (chronic kidney disease) stage V requiring chronic dialysis (HCC) - Primary End stage renal disease Aortic stenosis with bicuspid valve Essential hypertension Unspecified essential hypertension 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
--- OUTSIDE RECORDS SUMMARY | 2019-02-11 21:16 | XMS REPORT | Summary of Care ---
:1955 Author Organization [facility] Address [address] [address] Care Team Providers Name Role Phone LaraWilson Jo Primary Care Provider Daniel Sánchez MD Primary Bench Molder/Servomechanism Assembler Reason for Visit Reason Comments Follow Up Pt. in for a follow up. Echo done on 12/12/18. Reports doing better. Was seen in [place] reports had 5L of fluid Removed. Encounter Details Date Type Department Care Team Description 01/17/2019 Office Visit Stephanie Jones McClintic, Aortic valve stenosis, etiology of cardiac valve disease unspecified (Primary Dx); Cardiology MD Cody Coronary artery disease involving point [place] heart, angina presence unspecified, unspecified vessel or lesion type; [address] Essential hypertension; [place] [address] [place] [address] Bicuspid aortic valve; [phone] Chronic diastolic congestive heart failure (HCC) Allergies Active Allergy Reactions Severity Noted Date Comments Kd Inhibitors Respiratory Reaction 11/16/2011 Cough Codeine GI Reaction 06/16/2014 nausea documented as of this encounter (statuses as of 01/17/2019) Medications Medication Sig Dispensed Refills Start Date End Date Status aspirin (ECOTRIN) 81 MG Take 81 mg by 0 Active PO TBEC mouth DAILY. acetaminophen (TYLENOL) Take 650 mg by 0 Active 325 MG Oral Tab mouth EVERY FOUR HOURS NEEDED for Pain. B Yphzmiy-K-Rihfq Acid Take by mouth 0 Active (DIALYVITE [...] (BLOOD 1 Each by Does 300 Strip 10 09/17/2018 Active GLUCOSE TEST STRIPS) In not [...] TWICE TabIndications: DAILY. Coronary artery disease involving point lay ira coronary artery of point [place] heart without angina pectoris nitroglycerin Place 1 [...] mg by 0 Active Oral Tab mouth. 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 associated with 2016 type 2 diabetes mellitus Overview: S/p victrectomy [place] eye MD Dr.Robert Becker Controlled type 2 diabetes mellitus with chronic kidney disease on chronic dialysis, with long-term current use of insulin Aortic valve stenosis 01/05/2015 Lymphedema distichiasis syndrome with renal disease and diabetes mellitus Diabetic retinopathy 10/14/2014 CKD (chronic kidney disease) stage V requiring chronic dialysis 06/03/2014 Overview: AV fistula - Placed Dr Ford Hemodialysis three times weekly [facility] Asplenia 12/12/2012 Overview: 11/13 Patient needs [...] 04/30/2007 Hereditary spherocytosis 04/30/2007 Overview: Splenectomy Dr Shane SEARS 09/06 documented as of this encounter (statuses as of 01/17/2019) Resolved Problems Problem Noted Date Resolved Date [...] as of this encounter (statuses as of 01/17/2019) Immunizations Name Administration Dates Next Due HIB [...] Sign Reading Time Taken Comments Blood Pressure 116/52 01/17/2019 2:16 PM EDT Pulse 64 01/17/2019 2:16 PM EDT Temperature - - Respiratory Rate - - Oxygen Saturation - - Inhaled Oxygen Concentration - - Weight 102.1 kg (225 lb) 01/17/2019 2:16 PM EDT Height 157.5 cm (5' 2") 01/17/2019 2:16 PM EDT Body Mass Index 41.15 01/17/2019 2:16 PM EDT documented in this encounter Patient Instructions Patient InstructionsMcCody Rodriguez MD - 01/17/2019 2:20 PM EDT No medication changes today. Continue to work on a low sodium diet and weight loss. Keep your scheduled appointment with me in March. documented in this encounter Progress Notes Cody Hammond MD - 01/17/2019 2:20 PM EDT [facility] Note Patient: Leora Anderson Date of : 1955 Date of Service: 01/17/2019 REFERRING PRACTITIONER: Ankur PRIMARY CARE PROVIDER: Wilson Bermudez Chief Complaint: Chief Complaint Patient presents with Follow Up Pt. in for a follow up. Echo done on 12/12/18. Reports doing better. Was seen in [place] reports had 5Lof fluid Removed. History of Present Illness: We had the pleasure of seeing Leora Anderson today at the [facility]. She is a 64-y.o. female with longstanding poorly controlled DM, HTN, dyslipidemia, TIA, obesity, ESRD on HD, spherocytosis s/p splenectomy, and a bicuspid aortic valve with stenosis. She also has CAD and received a MAURILIO to her LAD 10/09/18. Ms. Anderson returns to cardiology clinic today for close f/u of her CP and dyspnea. At her last visitI had felt that she was volume overloaded and spoke with Dr. Izaguirre to see if he could work on getting some fluid off with HD. He did so and her sxs improved. She then traveled to [place] and was having more SOB; was admitted overnight and they got 5L off with UF and she felt significantly better. From a symptom standpoint now, she reports quite good. She thinks that she still has more fluid to lose.No further CP at this point and her breathing feels much better. Has lost over 20 pounds since her last visit with me. Continues to have some coughing when lying down, but no F/C/S. Still has lymphedema but no worsening of her edema. No lightheadedness or syncope. No bleeding issues on DAPT but does have easy bruising. Patient Active Problem List Diagnosis Essential hypertension Mixed hyperlipidemia Nephrotic syndrome Hereditary spherocytosis ([facility]) Diabetic neuropathy, painful ([facility]) Vitamin B 12 deficiency Mononeuritis multiplex Sacroiliac inflammation ([facility]) BMI 40.0-44.9, adult ([facility]) HZV (herpes zoster virus) post herpetic neuralgia Asplenia CKD (chronic kidney disease) stage V requiring chronic dialysis ([facility]) Diabetic retinopathy ([facility]) Lymphedema distichiasis syndrome with renal disease and diabetes mellitus ([facility]) Aortic valve stenosis 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 associated with type 2 diabetes mellitus ([facility]) Controlled type 2 diabetes mellitus with chronic kidney disease on chronic dialysis, with long-term current use of insulin (HCC) ESRD on dialysis ([facility]) AV fistula stenosis, initial encounter ([facility]) Coronary artery disease Past Medical History: Diagnosis Date Aortic valve [...] STENT CORONARY; Surgeon: Samy Lee MD; Location: [facility] CATHETERIZATION HEART LEFT N/A 10/09/2018 Procedure: Catheterization Heart Left; Surgeon: Samy Lee MD; Location: [facility] CHOLECYSTECTOMY 11/2001 COLONOSCOPY N/A 12/27/2016 Procedure: COLONOSCOPY; Surgeon: Yan Godoy Jr., MD; Location: [facility] GI OR ECHO, TRANS ESOPHOGEAL N/A 10/09/2018 Procedure: Echo, Trans Esophogeal; Surgeon: Cody Hammond MD; Location : [facility] UT INTRO AV SHUNT Right 06/17/2015 Procedure: RIGHT ARM FISTULOGRAM; Surgeon: Whitney Ford MD; Location: [facility] MAIN OR UT INTRO CATH DIALYSIS CIRCUIT DX ANGRPH FLUOR S&I Right 07/30/2018 Procedure: FISTULOGRAM AV ROOM 14, ANGIOPLASTY, RIGHT ARM; Surgeon: Johnathan Garcia MD; Location: [facility] MAIN OR TOTAL SPLENECTOMY 09/2005 Allergies Allergen Reactions Kd Inhibitors Respiratory Reaction Cough Codeine GI Reaction nausea Current Outpatient Medications Medication acetaminophen (TYLENOL) 325 MG Oral Tab ADVOCATE INSULIN PEN NEEDLES 31G X 8 MM Does not apply Misc amLodipine (NORVASC) 5 MG Oral Tab aspirin (ECOTRIN) 81 MG PO TBEC atorvastatin (LIPITOR) 40 MG Oral Tab B Wzkogrk-Q-Zmidw Acid (DIALYVITE PO) Calcium Polycarbophil (FIBERCON PO) carvedilol (COREG) 25 MG Oral Tab Cinacalcet HCl (SENSIPAR) 30 MG Oral Tab clotrimazole-betamethasone (LOTRISONE) 1-0.05 % Apply externally Cream gabapentin (NEURONTIN) 300 MG Oral Cap Glucose Blood (BLOOD GLUCOSE TEST STRIPS) In Vitro Strip Glucose Blood (ONE TOUCH ULTRA TEST STRIPS) In Vitro Strip Insulin Glargine 100 UNIT/ML Subcutaneous Solution Pen-injector Insulin Pen Needle (PEN NEEDLES) 30G X 8 MM Does not apply Misc Lancets Does not apply Misc levoFLOXacin 250 MG Oral Tab lisinopril (PRINIVIL, ZESTRIL) 20 MG Oral Tab nitroglycerin (NITROSTAT) 0.4 MG Sublingual SL Tab ONETOUCH DELICA LANCETS 33G Does not apply Misc sevelamer carbonate (RENVELA) 800 MG Oral Tab ticagrelor (BRILINTA) 90 MG Oral Tab Family History Problem Relation Age of Onset Diabetes Mother Thyroid Mother Arthritis Mother Heart Disease Paternal Grandfather Social History Socioeconomic History Marital status: Single [...] file Gets together: Not on file Attends amish service: Not on file Active member of [...] Asked Social History Narrative Not on file Review of Systems - Negative except as noted in HPI. Physical Exam: Vitals: 01/17/19 1416 BP: 116/52 BP Location: Left arm Patient Position: Sitting Pulse: 64 Weight: 225 lb (102.1 kg) Height: 5' 2" (1.575 m) Body mass index is 41.15 kg/m. General: Morbidly obese, alert 64-y.o. female in NAD HEENT: anicteric, MMM, no E/E OP, conj pink Neck: JVP much improved at approx 5-6 cm above RA; no carotid bruits or LAD but + radiation of aortic murmur to bilateral carotids CV: RRR, normal s1 with 3/6 late-peaking crescendo decrescendo systolic murmur at USB. Blunted S2 similar to prior exam. Pulm: CTA bilaterally without wheezes, rhonchi, or rales. No increased work of breathing. Abd: soft, obese, NT, ND, +BS. No appreciable pulsatile masses or bruits. Ext: Trace bilateral lower extremity edema; no cyanosis, no cords, redness, or warmth. 2+ radial pulses. R arm fistula with + thrill as before. Neuro: no gross focal deficits Skin: no visible lesions Labs: Lab Results Component Value Date NA 138 12/12/2018 K 4.8 12/12/2018 CL 90 (L) 12/12/2018 CO2 33 (H) 12/12/2018 GLUCOSE 107 (H) 12/12/2018 BUN 62 (H) 12/12/2018 CREATININE 7.2 (H) 12/12/2018 CALCIUM 9.0 12/12/2018 TP 7.6 12/12/2018 ALBUMIN 4.2 12/12/2018 AST 17 12/12/2018 ALT 16 12/12/2018 ALK 93 12/12/2018 TBILI 0.6 12/12/2018 Lab Results Component Value Date NT PRO BNP 27,300 (H) 12/12/2018 Lab Results Component Value Date CHOL 99 06/27/2017 TRIG 85 06/27/2017 HDL 44 06/27/2017 LDL 38 06/27/2017 LDLHDLRATIO 0.9 06/27/2017 CHOLHDLRATIO 2.3 06/27/2017 Cardiac Studies: TTE 12/12/2018: FINAL IMPRESSION: Moderate concentric LVH with moderate left atrial enlargement, diastolic dysfunction, and evidence of elevated left heart filling pressures. High normal LV systolic function with no regional wall motion abnormalities; estimated LVEF 65-70%. Mild-moderate right heart enlargement with normal RV contractility. Bicuspid aortic valve with severe stenosis, as described. Mild-moderate mitral and tricuspid regurgitation. Mild elevation in estimated pulmonary arterial systolic pressure. No pericardial effusion. Compared to prior REMY 10/09/18, transaortic gradients are higher and calculated OWEN is lower. However, current AV measurements are essentially identical to those of TTE on 08/29/18 and don't likely represent a true change compared to the October REMY. REMY 10/09/18: Aortic Valve The aortic valve is bicuspid and moderately calcified, with fusion of the right and left coronary cusps. Leaflet motion is moderately restricted. The mean and peak gradients across the aortic valve are 31 mmHg and 49 mmHg, respectively. Aortic valve area by continuity equation is 1.1cm2. Aortic valve area by 3D-guided 2D planimetry is 1.2cm2. The peak transaortic velocity is 3.5 m/s. The doppler velocity index is 0.37. All of the above findings are consistent with moderate aortic stenosis. There is trace to mild aortic regurgitation. FINAL IMPRESSION: Moderate concentric LVH with severe left atrial enlargement and no evidence of LA/EVITA thrombus. High normal LV systolic function with no regional wall motion abnormalities; estimated LVEF 65-70%. Mild-moderate right heart enlargement with preserved RV contractility. Bicuspid aortic valve with moderate stenosis, as described. Mild to moderate mitral regurgitation. No pericardial effusion. Small PFO with minimal left to right shunting. Mild atherosclerotic disease of the aortic arch and descending aorta. Left and Right Heart Cath 10/09/18: Moderate aortic stenosis. Severe mid LAD stenosis s/p PCI with MAURILIO (Synergy 3.0mm x 16mm). 30 Day MCOT 12/26/17: MONITORING SUMMARY: The patient was monitored for 19 days, 13 hours, 43 minutes between the dates of 11/26/2017 and 12/20/2017. FINDINGS: 1. The rhythm throughout the monitoring period was normal sinus, with a minimum heart rate of 50 beats per minute, average heart rate of 69 beats per minute, and maximum heart rate of 120 beats per minute. 2. The patient only experienced one symptomatic episode during the monitoring period, which consisted of shortness of breath. This occurred during moderate activity and the corresponding rhythm was normal sinus with a heart rate of 83 beats per minute and no evidence of ectopy or ST segment changes. 3. On 11/26/2017 a single episode of nonsustained paroxysmal atrial tachycardia lasting 13 beats at a rate of 126 beats per minute was noted. This was asymptomatic. 4. No episodes of atrial fibrillation, heart block, or ventricular tachycardia were seen. 5. The PVC burden was 2% over the monitoring period. CONCLUSIONS: Mobile cardiac outpatient telemetry reveals a brief asymptomatic episode of paroxysmal atrial tachycardia, but is otherwise within normal limits. TTE 09/12/17: TTE 05/12/17: FINAL IMPRESSION: Moderate concentric LVH with severe left atrial enlargement. Normal LV systolic function with no gross regional wall motion abnormalities; estimated LVEF 60-65%. Grade II (moderate) diastolic dysfunction with evidence of very elevated left heart filling pressures. Mild-moderate right heart enlargement with normal RV systolic function. Moderate aortic stenosis; cannot rule out a bicuspid aortic valve (see text). Mild mitral regurgitation. Moderate elevation in estimated pulmonary arterial systolic pressure. No pericardial effusion. Compared to prior study 05/13/2016, transaortic gradients are slightly higher but calculated OWEN is unchanged. Aortic valve may be bicuspid, and estimated PASP is higher (43 mmHg --> 53 mmHg; likely due to higher left heart filling pressures). Dobutamine Echo 12/24/14: Baseline Echocardiogram: This was a limited study for Stress Echo. Severe concentric LVH with mild left atrial enlargement. Hyperdynamic resting LV systolic function with no regional wall motion abnormalities and calculated LVEF 70%. Normal RA size. Mild RV enlargement with preserved RV contractility. Moderate calcific aortic stenosis (see discussion below). Mild mitral regurgitation. No pericardial effusion. Aortic Valve The aortic valve is not well visualized in cross section but appears tricuspid, mildly calcified, with restricted mobility. At rest, the mean and peak gradients across the aortic valve are 15 mmHg and 26 mmHg, respectively. Aortic valve area by continuity equation using VTI is 1.2cm2. Aortic valve area by continuity equation using Vmax is 1.3cm2. Aortic valve area by continuity equation using a Chew's stroke volume of 93cc is 1.3cm2. 2D imaging is not adequate to allow for accurate planimetry of the valve area. There is moderate aortic stenosis. There is no significant aortic regurgitation. At peak dobutamine infusion, the LVOT VTI increases to 30.2 and the mean and peak AV gradients appear to increase substantially to 73 mmHg and 114 mmHg, respectively. However, the spectral doppler envelope shows that the majority of flow is happening at lower gradients (22 mmHg, and 35 mmHg, respectively). I don't believe that the findings represent more than moderate aortic stenosis but it is possible that these represent AV flows. Another possibility, given her severe LVH, is that the higher gradients represent development of LVOT obstruction. However, the doppler spectrum is not particularly late-peaking as would be expected for that entity. Contamination of the doppler signal by TR or MR jets is also possible but they do not appear to be clearly holosystolic. Could consider REMY for further evaluation of aortic valve structure and function if clinically indicated. FINAL IMPRESSION: Appropriate heart rate and blood pressure response to dobutamine. This test is negative for ischemia by symptoms, EKG and echocardiographic imaging, as described. Moderate calcific aortic stenosis with lowish resting gradients and dobutamine-induced changes as detailed below. Assessment & Plan: Leora Anderson is a 64-y.o. female with longstanding poorly controlled DM , HTN, dyslipidemia,TIA, obesity, ESRD on HD, spherocytosis s/p splenectomy, and a bicuspid aortic valve with stenosis.She also has CAD and received a MAURILIO to her LAD 10/09/18. ICD-9-CM ICD-10-CM 1. Aortic valve stenosis, etiology of cardiac valve disease unspecified 424.1 I35.0 2. Coronary artery disease involving point lay ira heart, angina presence unspecified, unspecified vessel or lesion type 414.01 I25.10 3. Essential hypertension 401.9 I10 4. Bicuspid aortic valve 746.4 Q23.1 5. Chronic diastolic congestive heart failure (HCC) 428.32 I50.32 428.0 1. Diastolic CHF: Symptoms have significantly improved with volume removal in HD, and she has lost over 20 pounds since her last visit with me. While her aortic stenosis is quite significant and probably contributing some to her symptoms, her recent echo in December showed no change in the valve but significantly elevated left heart filling pressures. Continue working on getting as much volume off in HD as possible. I again counseled pt on working on "solid" weight loss and a low sodium diet. 2. Coronary Artery Disease, s/p MAURILIO to LAD: No current anginal symptoms. I recommend the following: Antiplatelets: Continue aspirin 81 mg daily for life, and Brilinta x 1 year (through 10/10/2019). Prior bleeding issues at her AV fistula have improved with conservative measures. Statin: Cont atorvastatin. LDL was <30 in December 2018. Beta-rosalee: Cont carvedilol. KD-inhibitor/ARB: Cont lisinopril. Cardiac Rehab: We're going to hold off on further cardiac rehab sessions until we get a better handle on her symptoms. 3. Bicuspid AV with Aortic Stenosis: REMY and cath in October proved that she indeed has a bicuspid AV and also that her is in the moderate and not severe range (yet). Will plan to recheck echoes every 4-6 months at this poine. If/when she requires AVR then TAVR may be an option (off label in setting of bicuspid valve, but there has been some increasing observational data that outcomes are reasonably good in this population). Thank you for allowing me to participate in the care of Leora Anderson. We have scheduled follow up in our office in March as previously scheduled. If you have any questions or concerns please feel free to call our office at . Cody Hammond MD, 01/17/2019, 14:49 This note was created using my previous note as a template; changes were made where appropriate, andall information in the current note is up to date to the best of my knowledge.Electronically signed by Cody Hammond MD at 2018 2:49 PM EDTdocumented in this encounter Plan of Treatment Date Type Specialty Care Team Description 01/24/2019 Lab Internal Medicine 03/14/2019 Office Visit Cardiology Cody Hammond MD [facility] [place] [address] 04/18/2019 Office Visit Internal Medicine Wilson Bermudez MD [facility] [place] [address] 05/21/2019 Office Visit Vascular Surgery Johnathan Garcia MD [address] [address] Health Maintenance Due Date Last Done [...] 10/18/2016, Additional history exists LIPID DISORDER SCREENING 12/13/2019 12/12/2018, 06/25/2018, 06/27/2017, Additional history exists COLONOSCOPY SCREENING 12/28/2019 12/27/2016, 12/27/2016, 12/03/2013, Additional history exists OSTEOPOROSIS SCREENING 12/13/2022 12/13/2012 HPV IMMUNIZATION SERIES Aged Out No longer eligible based on patient's age to complete this topic documented as of this encounter Goals Goal Patient Goal Associated Recent Patient-Stated? Author Type Problems Progress Blood Pressure Blood Pressure 116/52 No Chinyere, < 140/90 (01/17/2019 MD Sarah 2:16 PM EDT) Note: This is an individualized treatment (blood pressure) goal for Leora Anderson: Displayed above (on the left) is your goal for blood pressure control. Your most recent blood pressure is also shown above, on the right. You should try to achieve blood pressures that are lower than your goal listed above (on the left). Weight increase vs. 18 mo CHF 5 (01/17/2019 2:16 PM EDT) No Wilson Bermudez MD min (lbs) < 5 Note: This [...] better. Weight loss vs. 18 mo Lifestyle 25 (01/17/2019 2:16 PM EDT) Sarah Grant MD max (lbs) [...] and any After Visit Summaries. Consume a [id number] diet Lifestyle Wilson Bailey MD Note: This [...] This is an individualized self-management goal for Leroa Anderson: Please check your weight daily. Refer to the accompanying CHF treatment goal and call your doctor immediately for further instructions on how to respond to unexpected weight gain. documented as of this encounter Implants Implanted Type Area Activities Director Device Shelf Model / Identifier Expiration Serial / Lot Date Synergy Stent - [id number] N/A: [employer] [id number] / Implanted: Qty: 1 on 10/09/2018 by Saym Lee MD at [facility] / [id number] documented as of this encounter Results Not on filedocumented in this encounter Visit Diagnoses Diagnosis Aortic valve stenosis, etiology of cardiac valve disease unspecified - Primary Coronary artery disease involving point lay ira heart, angina presence unspecified, unspecified vessel or lesion type Essential hypertension Unspecified essential hypertension Bicuspid aortic valve Congenital insufficiency of aortic valve Chronic diastolic congestive heart failure (HCC) Chronic diastolic heart failure documented in this encounter Insurance Payer Benefit Plan / Subscriber ID Effective Dates Phone Address Type Group AETNA MEDICARE AETNA MEDICARE xxxxxxxx 2017-Present [employer] ADVANTAGE ADVANTAGE Guarantor Name Account Type Relation to Date of Phone Billing Patient Address Leora Anderson Personal/Family 1955 [address] [phone] [place], [place] (Work) [id number] documented as of this encounter Advance Directives [...]
--- OUTSIDE RECORDS SUMMARY | 2019-02-11 21:16 | XMS REPORT | Summary of Care ---
:1955 Author Organization [facility] Address [address] [address] Care Team Providers Name Role Phone Wilson Bermudez Primary Care Provider Daniel Sánchez MD Primary Daycare Teacher/Instrument Technologist Reason for Visit Reason Comments Cough persistant cough for 2.5 weeks. pt states she was Dx'd with pneumonia in [place] and seen by Dr Bermudez for f/u 01/10 but the cough has not gone away Encounter Details Date Type Department Care Team Description 01/28/[address] [facility] Leora Oneill, Cough (Primary Dx); [address] PA-C [place] [address] [address] [phone] [place] [address] [phone] Allergies Active Allergy Reactions Severity Noted Date Comments Kd Inhibitors Respiratory Reaction 11/16/2011 Cough Codeine GI Reaction 06/16/2014 nausea documented as of this encounter (statuses as of 01/28/2019) Medications Medication Sig Dispensed Refills Start Date End Date Status aspirin (ECOTRIN) 81 MG Take 81 mg by 0 Active PO TBEC mouth DAILY. acetaminophen (TYLENOL) Take 650 mg by 0 Active 325 MG Oral Tab mouth EVERY FOUR HOURS NEEDED for Pain. B Iyrvrcs-D-Oeyot Acid Take by mouth 0 Active (DIALYVITE [...] (ONE 1 Strip by In 400 Strip 09/11/2018 Active TOUCH ULTRA TEST Vitro route [...] TWICE TabIndications: DAILY. 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7 01/28/2019 4:53 PM EDT C (99.9 F) Respiratory Rate - - Oxygen Saturation 94% 01/28/2019 4:53 PM EDT Inhaled Oxygen Concentration - - Weight 101.2 kg (223 lb) 01/28/2019 4:53 PM EDT Height 157.5 cm (5' 2") 01/28/2019 4:53 PM EDT Body Mass Index 40.79 01/28/2019 4:53 PM EDT documented in this encounter Patient Instructions Patient InstructionsDoLeora anthnoy PA-C - 01/28/2019 4:20 PM EDTEscribed tessalon pearls 200mg 1 pill up to 3 x daily for cough Avoid creamy foods and drink Rest, gargle with warm salt water Push water, soup, juice, tea with honey/lemon Call if not improving or with any questions or concerns documented in this encounter Progress Notes Leora Oneill PA-C - 01/28/2019 4:20 PM EDT PATIENT: Leora Anderson : 1955 DATE OF SERVICE: 01/28/2019 REFERRING PRACTITIONER: Ankur PRIMARY CARE PROVIDER: Wilson Bermudez CHIEF COMPLAINT: Chief Complaint Patient presents with Cough persistant cough for 2.5 weeks. pt states she was Dx'd with [place] and seen by Dr Crandall f/u 01/10 but the cough has not gone away Subjective HISTORY OF PRESENT ILLNESS: Leora Anderson is a 64-y.o. female who presents with continuing cough x 2.5 weeks Was seen [address] Dr[address] Bermudez 01/10/19, instructed to finish full course of levaquin prescribed for pneumonia in [place] He ordered repeat chest xray -- done 01/15 -- No acute cardiopulmonary findings. The lungs are clear. Waking up at night with cough Has CKD -- goes to dialysis mwf Denies fever, chills, nausea, vomiting, diarrhea, chest pains, SOB Past Medical History: Diagnosis Date Aortic valve [...] STENT CORONARY; Surgeon: Samy Lee MD; Location: [facility] CATHETERIZATION HEART LEFT N/A 10/09/2018 Procedure: Catheterization Heart Left; Surgeon: Samy Lee MD; Location: [facility] CHOLECYSTECTOMY 11/2001 COLONOSCOPY N/A 12/27/2016 Procedure: COLONOSCOPY; Surgeon: Yan Godoy Jr., MD; Location: [facility] GI OR ECHO, TRANS ESOPHOGEAL N/A 10/09/2018 Procedure: Echo, Trans Esophogeal; Surgeon: Cody Hammond MD; Location : [facility] NE INTRO AV SHUNT Right 06/17/2015 Procedure: RIGHT ARM FISTULOGRAM; Surgeon: Whitney Ford MD; Location: [facility] MAIN OR NE INTRO CATH DIALYSIS CIRCUIT DX ANGRPH FLUOR S&I Right 07/30/2018 Procedure: FISTULOGRAM AV ROOM 14, ANGIOPLASTY, RIGHT ARM; Surgeon: Johnathan Garcia MD; Location: [facility] MAIN OR TOTAL SPLENECTOMY 09/2005 Family History Problem Relation Age of Onset [...] Oral Tab TAKE 1 TABLET DAILY B Cjoxrac-U-Kwriv Acid (DIALYVITE PO) Take by mouth DAILY. [...] route THREETIMES DAILY. Diagnosis: Diabetes Mellitus Brand: Gigstarter one touch E11.9 TID Glucose Blood (ONE [...] apply route THREE TIMES DAILY. Brand:One Touch [employer] Dx:250.02Test Blood Glucose 3 times A DAY levoFLOXacin 250 MG Oral Tab Take 250 mg by mouth. lisinopril (PRINIVIL, ZESTRIL) 20 MG Oral Tab Take 1 Tab by mouth DAILY. nitroglycerin (NITROSTAT) 0.4 MG Sublingual SL Tab Place 1 Tab under tongue EVERY FIVE MINUTES NEEDED for chest pain. Matches Fashion LANCETS 33G Does not apply Misc 1 [...] file Gets together: Not on file Attends buddhism service: Not on file Active member of [...] Asked Social History Narrative Not on file REVIEW OF SYSTEMS: Skin: negative skin lesions Eyes: negative visual blurring Ears/Nose/Throat: positive post nasal drip Respiratory: positive cough Cardiovascular: negative chest pain Gastrointestinal: negative abdominal pain, constipation, diarrhea, nausea or vomiting Genitourinary: negative burning on urination, dysuria or vaginal discharge. Positive CKD, on dialysis Musculoskeletal: positive arthritis/joint pain Neurologic: positive diabetic neuropathy Psychiatric: negative anxiety Hematologic/Lymphatic/Immunologic: negative allergies Endocrine: positive diabetes II Objective PHYSICAL EXAMINATION: VITALS: BP 96/44 (BP Location: Left arm, Patient Position: Sitting) | Pulse 87 | Temp 99.9 F (37.7 C) | Ht 5' 2" (1.575 m) | Wt 223 lb (101.2 kg ) | SpO2 94% | BMI 40.79 kg/m Body mass index is 40.79 kg/m. General appearance: alert, mild distress, cooperative, oriented times 3 Skin: Skin color, texture, turgor normal. No rashes or lesions. Head: Normocephalic. No masses, lesions, tenderness or abnormalities Eyes: conjunctivae/corneas clear. PERRL, EOM's intact. Nose/Sinuses: mucosa normal, no rhinorrhea Oropharynx: positive findings: mild oropharyngeal erythema, post nasal drip present Neck: Neck supple, FROM. No cervical or supraclavicular adenopathy. Lungs: scattered mild rhonchi throughout Heart: RRR. 3/6 systolic murmur present. No clicks or gallops. No peripheral edema . IMPRESSION: ICD-9-CM ICD-10-CM 1. Cough 786.2 R05 2. Post-nasal drip 784.91 R09.82 Plan PLAN: Escribed tessalon pearls 200mg 1 pill up to 3 x daily for cough Avoid creamy foods and drink Rest, gargle with warm salt water Push water, soup, juice, tea with honey/lemon Call if not improving or with any questions or concerns Author: Leora Oneill PA-C 01/28/2019 16:52 documented in this encounter Plan of Treatment Date Type Specialty Care Team Description 03/14/2019 Office Visit Cardiology Cody Hammond MD [facility] [place] [address] [phone] 04/18/2019 Office Visit Internal Medicine Wilson Bermudez MD [address] [place] [address] 05/21/2019 Office Visit Vascular Surgery Johnathan Garcia MD [address] [address] [phone] Health Maintenance Due Date Last Done Comments [...] Type Problems Progress Blood Pressure Blood Pressure 96/44 No Crepet, < 140/90 (01/28/2019 MD Sarah 4:53 PM EDT) Note: This is an individualized treatment (blood pressure) goal for Leora Alejo Monica: Displayed above (on the left) is your goal for blood pressure control. Your most recent blood pressure is also shown above, on the right. You should try to achieve blood pressures that are lower than your goal listed above (on the left). Weight increase vs. 18 mo CHF 3 (01/28/2019 4:53 PM EDT) No Wilson Bermudez MD min [...] < 7.0 Diabetes 5.5 (01/24/2019 8:08 AM Sarah Grant MD EDT) Note: This is an individualized treatment (diabetes control, HgbA1C) goal for Leora Anderson: Displayed above is your progress towards your HgbA1C goal. Your goal is shown above (on the left); your most recent HgbA1C is shown on the right. Note that lower numbers are better. Weight loss vs. 18 mo Lifestyle 27 (01/28/2019 4:53 PM EDT) Sarah Grant MD max (lbs) >= 10 Note: This is an individualized lifestyle goal for Leora Anderson: Your body mass index (BMI) is more than 30. You should lose weight. A reasonable starting goal is to lose 10 pounds. Displayed above is how many pounds you have lost thus far towards your 10 pound weight loss goal. Keep immunizations current Lifestyle No Sarah Whitlock MD Note: This is an individualized lifestyle goal for Leora Anderson: Please be sure to keep up-to-date on recommended immunizations. For example, this would include a yearly influenza vaccine. Immunization status can be seen by looking at the Health Maintenance sections of your eG[employer], Plan of Care, and any After Visit Summaries. Consume a lw-dnjwx-hvuz diet Lifestyle No Wilson Bermudez MD Note: This is an individualized lifestyle goal for Leora Anderson: Please do not add additional salt to your food. Additional salt may lead to fluid retention and worsen your congestive heart failure. Take all prescribed medications as directed Self-management No Sarah Whitlock MD Note: This is an individualized self-management [...] is an individualized self-management goal for Leora [address]: Please check your weight daily. Refer to the accompanying CHF treatment goal and call your doctor immediately for further instructions on how to respond to unexpected weight gain. documented as of this encounter Implants Implanted Type Area Facility Security Officer Device Shelf Model / Identifier Expiration Serial / Lot Date Synergy Stent - [id number] N/A: LAD [employer] [id number] / Implanted: Qty: 1 on 10/09/2018 by Samy Lee MD at [facility] / [id number] documented as of this encounter Results Not on filedocumented in this encounter Visit Diagnoses Diagnosis Cough - Primary Post-nasal drip Postnasal drip documented in this encounter Insurance Payer Benefit Plan / Subscriber ID Effective Dates Phone Address Type Group AETNA MEDICARE AETNA MEDICARE xxxxxxxx 2017-Present Aetna ADVANTAGE ADVANTAGE Guarantor Name Account Type Relation to Date of Phone Billing Patient Address Leora Anderson Personal/Family 1955 [address] ([address] [phone] [place], [place] (Work) [id number] documented as of this encounter Advance Directives [...]
--- OUTSIDE RECORDS SUMMARY | 2019-02-11 21:16 | XMS REPORT | Summary of Care ---
:1955 Author Organization [facility] Address [address] [address] Care Team Providers Name Role Phone Wilson Bermudez Primary Care Provider Daniel Sánchez MD Primary Wind Energy Mechanic/Train Reservation Clerk Reason for Visit Reason Comments Hospital Follow Up Patient was discharged from [facility] on 01/03/2019. 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, with long-term current use of insulin ([facility]); [address] CKD (chronic kidney disease) stage V requiring chronic dialysis ([facility]); [place], [place] [id number] [place] [address] Acute on chronic congestive heart failure, unspecified heart failure type ([facility] ); [phone] Pneumonia of both lungs due to infectious organism, unspecified part of lung; Pressure injury of left buttock, stage 1 Allergies Active Allergy Reactions Severity Noted Date Comments Kd Inhibitors Respiratory Reaction 11/16/2011 Cough Codeine GI Reaction 06/16/2014 nausea documented as of this encounter (statuses as of 01/10/2019) Medications Medication Sig Dispensed Refills Start Date End Date Status aspirin (ECOTRIN) 81 MG Take 81 mg by 0 Active PO TBEC mouth DAILY. acetaminophen (TYLENOL) Take 650 mg by 0 Active 325 MG Oral Tab mouth EVERY FOUR HOURS NEEDED for Pain. B Ozbnlpn-P-Eafuo Acid Take by mouth 0 Active (DIALYVITE [...] TWICE TabIndications: DAILY. 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 [...] Placed Dr Ford Hemod[facility] three [facility] 12/12/2012 Overview: 11/13 Patient needs pneumovax [...] Hereditary spherocytosis 04/30/2007 Overview: Splenectomy Dr Lynn [facility] 09/06 documented as of this encounter (statuses as of 01/10/2019) Resolved Problems Problem Noted Date Resolved Date [...] as of this encounter (statuses as of 01/10/2019) Immunizations Name Administration Dates Next Due HIB [...] Sign Reading Time Taken Comments Blood Pressure 118/62 01/10/2019 1:02 PM EDT Pulse 72 01/10/2019 1:02 PM EDT Temperature - - Respiratory Rate - - Oxygen Saturation 93% 01/10/2019 1:02 PM EDT Inhaled Oxygen Concentration - - Weight 110.7 kg (244 lb) 01/10/2019 1:02 PM EDT Height 157.5 cm (5' 2") 01/10/2019 1:02 PM EDT Body Mass Index 44.63 01/10/2019 1:02 PM EDT documented in this encounter Patient Instructions Patient InstructionsWilson Bermudez MD - 01/10/2019 1:00 PM EDTChest x-ray next week Finish up levaquin Hemoglobin A1C after 01/16 can do same day as chest x-ray documented in this encounter Progress Notes Wilson Bermudez MD - 01/10/2019 1:00 PM EDT TCM Statement. Review of the hospitalization: I am seeing for transition of care following hospitalization. The date of discharge was: 01/03/19 The discharge diagnosis was Bilateral Pneumonia and congestive heart failure while on vacation trip to [place] 5000 [place] elevation She receive supplemental oxygen extra hemodialysis and oral and iv antibiotic she now feels much better She is on last few days of levaquin still has cough no sputum no chest pain no fevers no blood [facility] . I reviewed the discharge summary, discharge instructions, and pertinent additional documentation obtained during hospitalization. I reconciled the medications. I also reviewed the Transition of Care documentation done by staff. The tests that were not available at the time of discharge were reviewed. 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 ([facility]) Aortic valve stenosis 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 ADVOCATE INSULIN PEN NEEDLES 31G X 8 MM Does not apply Misc 1 Each by Does not apply route DAILY. 100 Each 3 amLodipine (NORVASC) 5 MG Oral Tab Take 1 Tab by mouth DAILY. 90 Tab 3 aspirin (ECOTRIN) 81 MG PO TBEC Take 81 mg by mouth DAILY. atorvastatin (LIPITOR) 40 MG Oral Tab TAKE 1 TABLET DAILY 90 Tab 3 B Pikurrf-L-Cnjgy Acid (DIALYVITE PO) Take by mouth DAILY. Calcium Polycarbophil (FIBERCON PO) Take by mouth DAILY. Indications: 2 daily carvedilol (COREG) 25 MG Oral Tab TAKE 1 TABLET TWICE DAILY WITH MEALS 180 Tab 3 Cinacalcet HCl (SENSIPAR) 30 MG Oral Tab Take 1 Tab by mouth DAILY. clotrimazole-betamethasone (LOTRISONE) 1-0.05 % Apply externally Cream APPLY TO AFFECTED AREA(S) THINLY TWO TIMES A DAY 3 Tube 5 gabapentin (NEURONTIN) 300 MG Oral Cap Take 1 Cap by mouth THREE TIMES DAILY. 270 Cap 3 Glucose Blood (BLOOD GLUCOSE TEST STRIPS) In Vitro Strip 1 Each by Does not apply route THREETIMES DAILY. Diagnosis: Diabetes Mellitus Brand: ultra one touch E11.9 TID 300 Strip 10 Glucose Blood (ONE TOUCH ULTRA TEST STRIPS) In Vitro Strip 1 Strip by In Vitro route FOUR TIMES DAILY. 400 Strip 3 Insulin Glargine 100 UNIT/ML Subcutaneous Solution Pen-injector Inject 20 Units beneath the skin EVERY MORNING. 15 mL 5 Insulin Pen Needle (PEN NEEDLES) 30G X 8 MM Does not apply Misc 1 Device by Does not apply route DAILY. Dx: E11.9, Inject daily insulin 100 Each 3 Lancets Does not apply Misc by Does not apply route THREE TIMES DAILY. Brand:One Touch [employer] Dx:250.02Test Blood Glucose 3 times A DAY 300 Each 5 levoFLOXacin 250 MG Oral Tab Take 250 mg by mouth. lisinopril (PRINIVIL, ZESTRIL) 20 MG Oral Tab Take 1 Tab by mouth DAILY. 90 Tab 3 nitroglycerin (NITROSTAT) 0.4 MG Sublingual SL Tab Place 1 Tab under tongue EVERY FIVE MINUTES NEEDED for chest pain. 25 Tab 5 ONETOUCH DELICA LANCETS 33G Does not apply Misc 1 Each by In Vitro route DAILY. 100 Each 9 sevelamer carbonate (RENVELA) 800 MG Oral Tab Take 800 mg by mouth THREE TIMES DAILY WITH MEALS. Indications: 4 tabs with meals 2 tabs with snacks. ticagrelor (BRILINTA) 90 MG Oral Tab Take 1 Tab by mouth TWICE DAILY. 180 Tab 3 ROS no cardiovascular symptoms Exam BP 118/62 Pulse 72 Ht 5' 2" (1.575 m) Wt 244 lb (110.7 kg) SpO2 93% BMI 44.63 kg/m2 Chest is clear, no wheezing or rales. Normal symmetric air entry throughout both lung ibarra. No chest wall deformities or tenderness. Stage I left buttock decub ulcer no erythema or exudate no fluctuance ICD-9-CM ICD-10-CM 1. ESRD on dialysis ([facility]) 585.6 N18.6 V45.11 Z99.2 2. 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 CKD (chronic kidney disease) stage V requiring chronic dialysis ([facility]) 585.6 N18.6 V45.11 Z99.2 4. Acute on chronic congestive heart failure, unspecified heart failure type ( [facility]) 428.0 I50.9 5. Pneumonia of both lungs due to infectious organism, unspecified part of lung 483.8 J18.9 XR CHEST2 VIEW PA AND LATERAL (STANDARD) 6. Pressure injury of left buttock, stage 1 707.05 L89.321 707.21 Coordination of care. - Additional testing related to hospitilization was requested today: yes See orders. I confirmed the patient's understanding of the diagnosis and plan of care. Specific education that was provided today: Patient Instructions Chest x-ray next week Finish up levaquin Hemoglobin A1C after 01/16 can do same day as chest x-ray The current and discharge medications were reconciled by me, today The source document was hospital discharge summary documented in this encounter Plan of Treatment Date Type Specialty Care Team Description 01/17/2019 Office Visit Cardiology Cody Hammond MD [address] [place] [address] [phone] 01/24/2019 Lab Internal Medicine 03/14/2019 Office Visit Cardiology Cody Hammond MD [address] [place] [address] [phone] 04/18/2019 Office Visit Internal Medicine Wilson Bermudez MD [address] [place] [address] [phone] 05/21/2019 Office Visit Vascular Surgery Johnathan Garcia MD [address] [address] Name Type Priority Associated Diagnoses Order Schedule XR CHEST 2 VIEW PA Imaging Routine Pneumonia of both lungs 1 Occurrences starting AND LATERAL due to infectious 01/10/2019 until (STANDARD) organism, unspecified 01/10/2020 part of lung Health Maintenance Due Date Last Done Comments [...] Type Problems Progress Blood Pressure Blood Pressure 118/62 No Crepet, < 140/90 (01/10/2019 MD Sarah 1:02 PM EDT) Note: This is an individualized treatment (blood pressure) goal for Leora [address]: Displayed above (on the left) is your goal for blood pressure control. Your most recent blood pressure is also shown above, on the right. You should try to achieve blood pressures that are lower than your goal listed above (on the left). Weight increase vs. 18 mo CHF 24 (01/10/2019 1:02 PM EDT) No Wilson Bermudez MD min [...] < 7.0 Diabetes 5.6 (06/27/2017 7:21 AM Sarah Grant MD EDT) Note: This is an individualized treatment (diabetes control, HgbA1C) goal for Leora Anderson: Displayed above is your progress towards your HgbA1C goal. Your goal is shown above (on the left); your most recent HgbA1C is shown on the right. Note that lower numbers are better. Weight loss vs. 18 mo max Lifestyle 6 (01/10/2019 1:02 PM EDT) No Sarah Whitlock MD (lbs) >= 10 Note: This is an [...] and any After Visit Summaries. 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, with long-term current use of insulin ([facility]) CKD (chronic kidney disease) stage V requiring chronic dialysis ([facility]) End stage renal disease Acute on chronic congestive heart failure, unspecified heart failure type ([facility]) Pneumonia of both lungs due to infectious organism, unspecified part of lung Pressure injury of left buttock, stage 1 documented in this encounter Insurance Payer Benefit Plan / Subscriber ID Effective Dates Phone Address Type Group AETNA MEDICARE AETNA MEDICARE xxxxxxxx 2017-Present [employer]na ADVANTAGE ADVANTAGE Guarantor Name Account Type Relation to Date of Phone Billing Patient Address Leora Anderson Personal/Family 1955 [address] [phone] [place], [place] (Work) [id number] documented as of this encounter Advance Directives [...]
[2019-02-11] MEDS ORDERED: Tranexamic Acid 1,000 MG/10 ML SDV TOPICAL ONE (22:55)
--- NOTE | 2019-02-11 22:55 | ED ---
Skin Complaint - HPI Summary HPI Summary: Patient presents with postdialysis fistula bleeding. Patient states he was stopped at dialysis, but then restarted when she got home. Denies any other symptoms, injury or pain. Patient on Brilinta. - History of Current Complaint Chief Complaint: EDBleedingDisorder Stated Complaint: RT ARM BLEEDING FROM DIALYSIS PER PT Hx Obtained From: Patient Onset/Duration: Started Hours Ago Timing: Constant Current Severity: None Pain Intensity: 0 Pain Scale Used: 0-10 Numeric Aggravating Symptom(s): Nothing Alleviating Symptom(s): Nothing Associated Signs & Symptoms: Negative - Additional Pertinent History Primary Care Physician: KAROL - Allergy/Home Medications Allergies/Adverse Reactions: Allergies Allergy/AdvReac Type Severity Reaction Status Date / Time codeine Allergy Constipatio Verified 02/11/19 21:05 n losartan Allergy Coughing Verified 02/11/19 21:05 PMH/Surg Hx/FS Hx/Imm Hx Endocrine/Hematology History: Reports: Hx Diabetes - type 2 - uses insulin, Other Endocrine/Hematological Disorders - hereditary spherocytosis - s/p splenectomy Denies: Hx Anticoagulant Therapy, Hx Thyroid Disease, Hx Unexplained Bleeding Cardiovascular History: Reports: Hx Hypercholesterolemia, Hx Hypertension, Other Cardiovascular Problems/Disorders - cardiac murmur - takes diuretic Denies: Hx Congestive Heart Failure, Hx Myocardial Infarction, Hx Pacemaker/ ICD Respiratory History: Denies: Hx Asthma, Hx Chronic Obstructive Pulmonary Disease (COPD), Hx Pneumonia GI History: Reports: Hx Gall Bladder Disease - s/p cholycystectomy History: Reports: Hx Chronic Renal Failure - end stage Comment Only: Hx Dialysis - soon fistula placed Musculoskeletal History: Reports: Hx Back Problems Sensory History: Denies: Hx Contacts or Glasses, Hx Hearing Aid Opthamlomology History: Denies: Hx Contacts or Glasses Neurological History: Reports: Hx Dementia, Hx Nerve Disease - mononeuritis multiplex Psychiatric History: Denies: Hx Panic Disorder - Surgical History Surgery Procedure, Year, and Place: CHOLECYSECTOMY; SPLENECTOMY. stent October 2018 Infectious Disease History: No Infectious Disease History: Denies: Traveled Outside the [place] in Last 30 Days - Family History Known Family History: Positive: Non-Contributory - Social History Alcohol Use: Rare Hx Substance Use: No Substance Use Type: Reports: None Hx Tobacco Use: No Smoking Status (MU): Never Smoked Tobacco Review of Systems Constitutional: Negative Eyes: Negative ENT: Negative Cardiovascular: Negative Respiratory: Negative Gastrointestinal: Negative Genitourinary: Negative Musculoskeletal: Negative Skin: Other Neurological: Negative Psychological: Normal All Other Systems Reviewed And Are Negative: Yes Physical Exam - Summary Physical Exam Summary: Mild bleed from AV fistula in right AC Triage Information Reviewed: Yes Vital Signs On Initial Exam: Initial Vitals Temp Pulse Resp BP Pulse Ox 97.4 F 80 18 146/51 94 02/11/19 21:01 02/11/19 21:01 02/11/19 21:01 02/11/19 21:01 02/11/19 21:01 Vital Signs Reviewed: Yes Appearance: Positive: Well-Appearing Skin: Positive: Warm Head/Face: Positive: Normal Head/Face Inspection Eyes: Positive: Normal Neck: Positive: Supple Respiratory/Lung Sounds: Positive: Clear to Auscultation Cardiovascular: Positive: Normal Abdomen Description: Positive: Nontender Musculoskeletal: Positive: Normal Neurological: Positive: Normal Psychiatric: Positive: Normal AVPU Assessment: Alert - Zakiya Coma Scale Best Eye Response: 4 - Spontaneous Best Motor Response: 6 - Obeys Commands Best Verbal Response: 5 - Oriented Coma Scale Total: 15 Procedures - Sedation Patient Received Moderate/Deep Sedation with Procedure: No Diagnostics - Vital Signs Vital Signs Temp Pulse Resp BP Pulse Ox 02/11/19 22:30 97.9 F 78 18 116/68 95 02/11/19 21:01 97.4 F 80 18 146/51 94 - Laboratory Lab Statement: Any lab studies that have been ordered have been reviewed, and results considered in the medical decision making process. Course/Dx - Course Course Of Treatment: Patient presents with postdialysis fistula bleeding. Patient states he was stopped at dialysis, but then restarted when she got home. Denies any other symptoms, injury or pain. Patient on Brilinta. Vital signs within normal limits. Surgicel and direct pressure by aid applied for 30 minutes with successful clotting. Surgicel left in place and patient's arm wrapped. Patient advised to leave dressing on until seen at dialysis appointment Monday. Patient understands improves with plan. - Diagnoses Provider Diagnoses: Hemorrhage of surgically-created arteriovenous fistula Discharge ED - Sign-Out/Discharge Documenting (check all that apply): Patient Departure - Discharge Plan Condition: Stable Disposition: HOME Patient Education Materials: Arteriovenous Fistula Creation for Hemodialysis ( [place]) Referrals: Wilson Bermudez MD [Primary Care Provider] - Additional Instructions: Leave dressing on until you go to next dialysis appointment. Return to the ED for any worsening symptoms. - Billing Disposition and Condition Condition: STABLE Disposition: Home
[2019-02-12 02:10] VITALS: BP 163/63
== END 2019-02-12 01:55 | disposition home or self-care (01) ==
LOC: ED 20:57
DX: T82.838A Hemorrhage due to vascular prosthetic devices, implants and grafts, initial encounter (principal); E11.22 Type 2 diabetes mellitus with diabetic chronic kidney disease; I12.0 Hypertensive chronic kidney disease with stage 5 chronic kidney disease or end stage renal disease; N18.6 End stage renal disease; E78.00 Pure hypercholesterolemia, unspecified; R01.1 Cardiac murmur, unspecified; Z99.2 Dependence on renal dialysis; Z79.4 Long term (current) use of insulin
CPT/HCPCS: 87641; 99282